=== PATIENT | female | born 1955 | race Caucasian/White ===

== ENCOUNTER 2019-01-21 05:00 | Inpatient (IN) ==
[2019-01-21] MEDS ORDERED: Isovue-370 500 ML BOTTLE IVP ONE (08:35)
[2019-01-21] MEDS ORDERED: Acetaminophen 325 MG TABLET PO PRN (09:38)
[2019-01-21] MEDS ORDERED: Ondansetron 4 MG/2 ML VIAL IVP PRN (09:38)
--- NOTE | 2019-01-21 09:38 | Internal Med History&Physical ---
Date of Encounter: 01/21/19 Time of Encounter: 09:37 Internal Medicine - H&P: HPI Chief complaint: Shortness of breath Admitted From: Emergency Dept History of present illness: Macey Bailon is a 63 F w hx smoker, COPD, DVT, vulvar ca s/p chemorad '17 c/b bladder perforation and hydronephrosis s/p b/l neph tubes, who presented to outside ED with SOB. Symptoms began 1 week ago and have gradually been worsening, and last night began to worsen significantly. Does have cough which has started to become productive as well as wheezing. She also reports subjective fever and chills. Pt's says she has been struggling to breath recently and very tired/weak. Pt denies CP or leg swelling or pain. Pt went to OSH ED 3 days ago for concern about kidney infection and was started on cefdinir, urines cultures are pending. Per ED documentation, EMS found pt hypoxic at 54% on room air, and she recovered to 98% on supplemental O2. Pt endorses history of chronic bronchitis and is a current 1ppd smoker for over 30 years. No recent travel or sick contacts. Patient is essentially homebound. In OSH ED, pt vitals unremarkable except O2 sats low 90s on non-rebreather. ECG shows sinus tach, CXR w bronchitis but no consolidations, BNP 200, Trop 0.23. Pt placed on O2, given dose of rocephin, solumedrol, and duoneb with clinical improvement. Transfer arranged to [place], and accepting physician requested evaluation for DVT/PE which was not done so heparin gtt started empirically prior to transfer. On my interview, patient is sleeping but easily wakes up, resting peaceably on supplemental O2. Denies any complaints other than mild SOB and cough at this time but says she's been very SOB lately, glad to be feeling somewhat improved with treatment at this time. Does also mention some R sided abd pain which she attributes to her kidney infection and says her urine is foul. Denies fevers. Past Med Surg Social Fam HX - Past Medical History Medical history: cancer, COPD, GERD, other Additional medical history: VULVA CANCER Psychiatric history: depression - Past Surgical History Surgical History: cholecystectomy, orthopedic, other, other Additional surgical history: SPINAL FUSION. ORIF. PARTIAL VULVECTOMY. BI- LATERAL NEPHROSTOMY. EXTENSIVE ABDOMINAL SURGERY DUE TO SEPSIS - Social History Smoking Status: Current every day smoker Smokeless Tobacco Status: No Alcohol use: none Drug use: none Internal Medicine - H&P: Meds Citalopram [CeleXA] 40 mg PO DAILY 02/16/17 [History] Docusate [Colace] 200 mg PO DAILY 02/16/17 [History] Gabapentin [Neurontin] 600 mg PO TID 02/16/17 [History] Potassium Chloride [Klor-Con 10] 10 meq PO DAILY 02/16/17 [History] Rivaroxaban [Xarelto] 20 mg PO 1700 02/16/17 [History] Albuterol Neb [AccuNeb] 1.25 mg IH Q6-8H PRN 03/14/17 [History] HYDROmorphone [Dilaudid] 4 mg PO DAILY 03/14/17 [History] OxyCODONE Immed Rel [Roxicodone 10 MG] 7.5 mg PO BID 03/14/17 [History] Pantoprazole Sodium [Protonix] 40 mg PO DAILY 03/14/17 [History] Cefdinir [Omnicef] 300 mg PO BID 10 Days #20 capsule 01/19/19 [Rx] Ferrous Sulfate [Iron] 325 mg PO DAILY 01/19/19 [History] Ibuprofen [Motrin] 400 mg PO Q8HR 01/19/19 [History] Loperamide HCl [Imodium A-D] 2 mg PO 8XD 01/19/19 [History] Megestrol Acetate [Megace Es] 625 mg PO DAILY 01/19/19 [History] Ondansetron ODT [Zofran ODT] 8 mg SL Q6HR 01/19/19 [History] OxyCODONE ER (12 HR) [OxyCONTIN] 20 mg PO Q12HR 01/19/19 [History] Polyethylene Glycol 3350 [MiraLAX] 17 gm PO DAILY 01/19/19 [History] 3 Allergy/AdvReac Type Severity Reaction Status Date / Time acetaminophen [From [facility]] Allergy Rash Verified 01/21/19 03:11 codeine Allergy Rash Verified 01/21/19 03:11 Erythromycin Base Allergy Rash Verified 01/21/19 03:11 hydrocodone [From [facility]] Allergy Rash Verified 01/21/19 03:11 All Systems PM: A 10-system review of systems was performed and is negative for pertinent findings except as documented above in the HPI. - Constitutional Vitals: Temp Pulse Resp BP Pulse Ox 98 F 103 16 93/70 94 01/21/19 08:21 01/21/19 08:21 01/21/19 08:21 01/21/19 08:21 01/21/19 08:21 Exam: General: NAD, good eye contact, emaciated, mild tachypnea Head: Atraumatic, normocephalic. Face symmetric Eyes: EOMI, sclerae anicteric ENT: Mucous membranes moist. Trachea midline. Thoracic: No visible chest wall deformities. Significant diffuse expiratory wheezing with mild coarse inspiratory sounds as well Cardio: Normal S1 and S2, regular rhythm, tachycardic, no murmurs Abdomen: Soft, nontender, nondistended. Bowel sounds present. No rebound Extremities: Warm, well perfused. DP pulses 2+ b/l. No clubbing, cyanosis. No edema Skin: Intact. No rashes, bruises, or ulcers Neuro: Awake, fully oriented. Good memory, concentration, attention. Speech fluent. CN II-XII grossly intact. Strength 5/5 in b/l UE and LE Internal Med - H&P Results - Labs CBC & Chem 7: 01/21/19 10:09 01/21/19 10:09 - Summary of Assessment and Plan Summary of Assessment and Plan: Macey Bailon is a 63 F w hx smoker, COPD, DVT, vulvar ca s/p chemorad '17 c/b bladder perforation and hydronephrosis s/p b/l neph tubes, who p/w SOB, wheezing, tachycardia, and subjective F/C, concerning for viral URI causing COPD exacerbation. COPD in acute exacerbation: unclear etiology, viral and PE are possibilities - nebs q4h&prn - prednisone 40 daily x5d, s/p solumedrol 125 in ED - azithromycin 500 po daily x5d - start LAMA, LABA/ICS on discharge Acute hypoxic respiratory failure: requiring 2L O2 to maintain sats >88% - RVP - CTPE - empiric hep gtt pending CT results, if negative can resume Xarelto - supplemental O2, wean as able - IS - treat cause as above - walk test prior to discharge Demand ischemia: mildly elevated trop in pt w respiratory issues who was significantly hypoxic - tele - trend trops - TTE in context of concern for PE and unclear cause of COPD exacerbation Pyelonephritis: Rocephin 1g daily Underweight: BMI 16, hx cancer, concern for severe malnutrition - nutrition consult DVT: holding xarelto while on hep gtt B/l nephrostomy tubes: noted Vulvar cancer: home chronic opioids, holding megace Depression: decrease celexa from 40 to 20 given qtc risk with zofran and azithro PPx: therapeutic FEN: regular, no MIVF Lines: PIV Consults: Code: Full Dispo: patient requires inpatient eval and management at this time. Anticipate 2-3 days. Will be homegoing
[2019-01-21 10:30] LABS: Hematocrit 44.8 % (35.3-44.9); Immature Granulocytes % 0.3 % (0-4); Lymphocytes # 0.3 K/mcL (0.6-4.6); Lymphocytes % 7.9 %; Mean Corpuscular HGB Conc 31.3 g/dL (31.6-35.5); Mean Corpuscular Hemoglobin 29.4 pg (28.0-33.3); Mean Corpuscular Volume 93.9 fL (83.0-100.0); Mean Platelet Volume 8.1 fL (9.4-12.4); Monocytes # 0.1 K/mcL (0.0-1.3); Monocytes % 2.3 %; Platelet Count 168 K/mcL (140-400); Red Blood Count 4.77 M/mcL (3.82-4.97); Segmented Neutrophils % 89.5 %
[2019-01-21 10:37] LABS: INR 1.7; Prothrombin Time 18.7 Seconds (9.4-12.1)
[2019-01-21 10:49] LABS: BUN/Creatinine Ratio 16 (6-26); Blood Urea Nitrogen 9 mg/dL (8-23); Calcium 8.1 mg/dL (8.6-10.3); Carbon Dioxide 24 mEq/L (23-29); Chloride 107 mEq/L (98-107); Glucose 139 mg/dL (70-105); Osmolality,Calculated 285 (280-300); Potassium 4.1 mEq/L (3.5-5.1); Sodium 137 mEq/L (136-145); eGFR For Non-African Americans > 60 (> 60)
[2019-01-21 10:50] LABS: Magnesium 1.8 mg/dL (1.6-2.6); Phosphorous 2.8 mg/dL (2.7-4.5)
[2019-01-21] MEDS: Azithromycin 250 MG TABLET PO SCH (10:58)
[2019-01-21 11:33] LABS: Troponin I 0.31 ng/mL (< 0.04)
[2019-01-21] MEDS: Ipratropium/Albuterol Neb 3 ML IH SCH ×4 (11:55→23:49)
[2019-01-21 12:20] LABS: Adenovirus Not Detected (Not Detect); Bordetella Pertussis Not Detected (Not Detect); Chlamydophila pneumoniae Not Detected (Not Detect); Coronavirus 229E Not Detected (Not Detect); Coronavirus HKU1 Not Detected (Not Detect); Coronavirus NL63 Not Detected (Not Detect); Coronavirus OC43 Not Detected (Not Detect); Human Metapneumovirus Not Detected (Not Detect); Human Rhinovirus/Enterovirus Not Detected (Not Detect); Influenza A Subtype 2009 H1 Not Detected (Not Detect); Influenza A Untypeable Not Detected (Not Detect); Influenza B Not Detected (Not Detect); Mycoplasma pneumoniae Not Detected (Not Detect); Parainfluenza Virus 1 Not Detected (Not Detect); Parainfluenza Virus 2 Not Detected (Not Detect); Parainfluenza Virus 3 Not Detected (Not Detect); Parainfluenza Virus 4 Not Detected (Not Detect); Respiratory Syncytial Virus Not Detected (Not Detect)
[2019-01-21] MEDS ORDERED: *HR* OxyCODONE Immed Rel 5 MG TABLET PO PRN (12:56)
[2019-01-21] MEDS: Nicotine 21 MG PATCH.TD24 TD SCH (13:05)
[2019-01-21] MEDS: Ibuprofen 400 MG TABLET PO SCH (17:55)
[2019-01-21] MEDS: *HR* Rivaroxaban 10 MG TABLET PO SCH (17:55)
[2019-01-21] MEDS: *HR* OxyCODONE ER (12 HR) 10 MG TABLET PO SCH (17:55)
[2019-01-21] MEDS: Gabapentin 300 MG CAPSULE PO SCH ×2 (17:56→22:14)
[2019-01-22] MEDS: Ibuprofen 400 MG TABLET PO SCH ×3 (00:16→15:40)
[2019-01-22] MEDS: Ipratropium/Albuterol Neb 3 ML IH SCH ×5 (04:40→20:32)
[2019-01-22] MEDS: cefTRIAXone 1,000 MG in 0.9 % Sodium Chloride Mini Bag 100 ML IVPB SCH (04:46)
[2019-01-22] MEDS: *HR* OxyCODONE ER (12 HR) 10 MG TABLET PO SCH ×2 (06:18→17:09)
[2019-01-22 07:51] LABS: Basophils % 0.6 %; Immature Granulocytes % 0.6 % (0-4); Mean Corpuscular Hemoglobin 29.3 pg (28.0-33.3); Red Cell Distribution Width 18.3 % (11.5-14.5)
[2019-01-22 07:52] LABS: Hematocrit 41.9 % (35.3-44.9); Hemoglobin 13.1 g/dL (11.5-15.4); Lymphocytes # 0.3 K/mcL (0.6-4.6); Lymphocytes % 17.9 %; Mean Corpuscular HGB Conc 31.3 g/dL (31.6-35.5); Mean Corpuscular Volume 93.7 fL (83.0-100.0); Mean Platelet Volume 8.6 fL (9.4-12.4); Monocytes # 0.3 K/mcL (0.0-1.3); Monocytes % 15.4 %; Neutrophils # 1.1 K/mcL (1.6-8.9); Platelet Count 151 K/mcL (140-400); Red Blood Count 4.47 M/mcL (3.82-4.97); Segmented Neutrophils % 65.5 %
[2019-01-22 07:55] LABS: Platelet Estimate Normal (Normal); Reactive Lymphocytes Present (Not Present)
[2019-01-22 08:10] LABS: BUN/Creatinine Ratio 20 (6-26); Blood Urea Nitrogen 10 mg/dL (8-23); Calcium 8.2 mg/dL (8.6-10.3); Carbon Dioxide 27 mEq/L (23-29); Chloride 108 mEq/L (98-107); Glucose 125 mg/dL (70-105); Osmolality,Calculated 293 (280-300); Potassium 3.7 mEq/L (3.5-5.1); Sodium 141 mEq/L (136-145); eGFR For Non-African Americans > 60 (> 60)
[2019-01-22] MEDS: Azithromycin 250 MG TABLET PO SCH (08:42)
[2019-01-22] MEDS: Nicotine 21 MG PATCH.TD24 TD SCH (08:42)
[2019-01-22] MEDS: predniSONE 20 MG TABLET PO SCH (08:42)
[2019-01-22] MEDS: Gabapentin 300 MG CAPSULE PO SCH ×3 (08:42→22:04)
[2019-01-22 09:12] LABS: Troponin I 0.05 ng/mL (< 0.04)
--- NOTE | 2019-01-22 11:58 | Internal Med Progress Note ---
Hospitalist Progress Note - Encounter Date of Encounter: 01/22/19 Time of Encounter: 09:50 - Subjective Interval History: Patient complains of chest tenderness. Shortness of breath is improving. She is able to breathe better at this time. At baseline, she is not on oxygen but currently she is requiring 2-3 L/m. No fevers or chills reported overnight. - Exam Vitals: Temp Pulse Resp BP Pulse Ox 97.8 F 81 19 114/82 97 01/22/19 07:33 01/22/19 07:33 01/22/19 11:34 01/22/19 07:33 01/22/19 11:34 Exam: General: Patient is alert, no acute distress, oriented x 3 ENT: Mucous membranes moist Respiratory: Coarse breath sounds bilaterally. no chest wall tenderness Cardiovascular: Regular rate and rhythm. s1 and s2 normal No clicks, rubs, gallops, or murmurs. No pedal edema Abdomen: Abdomen is soft, nontender. Bowel sounds are present Musculoskeletal: Spontaneously moving all extremities Skin: warm, dry, intact. Neuro: Alert oriented x 3 normal cranial nerves, no focal deficits - Assessment and Plan (1) Acute exacerbation of chronic obstructive airways disease Current Visit: Yes Status: Acute Assessment and Plan: Patient with acute exacerbation of COPD. Continue bronchodilators, steroids and O2 supplementation. Brought on due to influenza and pneumonia. (2) Pneumonia Current Visit: Yes Status: Suspected Assessment and Plan: Patient's CT angiogram shows a regular opacities in both lungs mainly in the lower lobes area could be infectious processes. Patient has been started on ceftriaxone and azithromycin. Cultures pending. (3) Influenza A Current Visit: Yes Status: Acute Assessment and Plan: Respiratory infection panel positive for influenza A. Continue Tamiflu (4) Leukopenia Current Visit: Yes Status: Acute Assessment and Plan: Patient has leukopenia with WBC count of 1.6. ANC of 1100. Could be related to pneumonia and acute infection along with influenza. Will monitor blood counts closely. (5) Elevated troponin Current Visit: Yes Status: Acute Assessment and Plan: Troponins have not trended down. Will obtain 2-D echocardiogram. EKG shows she did have chest pain today but describes it more as a tenderness without any relation to activity. EKG shows incomplete RBBB with T-wave inversion in septal leads. This is different compared to her prior EKG. Will obtain repeat EKG. Cardiology consult if echocardiogram abnormal (6) Pyelonephritis, acute Current Visit: Yes Status: Acute Assessment and Plan: Continue current antibiotics. Awaiting urine culture results. Given her history of vulvar cancer and bilateral nephrostomy tubes, expect her urine to be contaminated. However patient did have gram-negative rods and gram-positive cocci in cultures drawn from 01/19. She has grown Proteus cultures from 01/18 were positive for Proteus. This was sensitive to Rocephin and patient has been on Omnicef at home. We will continue Rocephin for now. We will follow culture results and adjust antibiotic regimen accordingly. DVT Prophylaxis: On Xarelto - Time Spent with Patient Total time spent is greater than 50% in coordination of care (as documented) at patient's floor/unit and/or counseling patient: Internal Medicine: Result - Labs CBC & Chem 7: 01/22/19 06:41 01/22/19 06:41 Labs: Short CBC 01/22/19 Range/Units 06:41 WBC 1.6 L D (4.3-11.1) K/mcL Hgb 13.1 (11.5-15.4) g/dL Hct 41.9 (35.3-44.9) % Plt Count 151 (140-400) K/mcL Neutrophils # 1.1 L (1.6-8.9) K/mcL BMP 01/22/19 06:41 Sodium 141 Potassium 3.7 Chloride 108 H Carbon Dioxide 27 BUN 10 Creatinine 0.49 L Glucose 125 H Calcium 8.2 L Cardiac Enzymes 01/22/19 Range/Units 06:41 Troponin I 0.05 H* (< 0.04) ng/mL - ABG Interpretation ABG results: PT/INR, D-dimer PT 18.7 Seconds (9.4-12.1) H 01/21/19 10:09 Consult Discharge Plan - Plan Referrals: Nikki Crowley, RN [facility] [Primary Care Provider] - (2) Pneumonia Qualifiers: Pneumonia type: due to Pneumococcus Laterality: bilateral Lung location: lower lobe of lung Qualified Code(s): J13 - Pneumonia due to Streptococcus pneumoniae (4) Leukopenia Qualifiers: Leukopenia type: neutropenia Neutropenia type: due to infection Qualified Code(s): D70.3 - Neutropenia due to infection
[2019-01-22] MEDS: *HR* Rivaroxaban 10 MG TABLET PO SCH (15:39)
[2019-01-22] MEDS: Budesonide/Formoterol 80/4.5 MDI IH SCH ×2 (15:48→20:32)
[2019-01-22] MEDS: Ondansetron ODT 4 MG TAB.RAPDIS SL SCH (17:09)
[2019-01-22] MEDS ORDERED: *HR* OxyCODONE ER (12 HR) 10 MG TABLET PO SCH (18:00)
[2019-01-22] MEDS ORDERED: OXYCODONE HCL 7.5 MG PO SCH (21:00)
[2019-01-23] MEDS: Ipratropium/Albuterol Neb 3 ML IH SCH ×7 (00:36→23:43)
[2019-01-23] MEDS: Ibuprofen 400 MG TABLET PO SCH ×3 (00:58→15:23)
[2019-01-23] MEDS: Ondansetron ODT 4 MG TAB.RAPDIS SL SCH ×4 (00:59→17:18)
[2019-01-23] MEDS: cefTRIAXone 1,000 MG in 0.9 % Sodium Chloride Mini Bag 100 ML IVPB SCH (05:22)
[2019-01-23] MEDS: *HR* OxyCODONE ER (12 HR) 10 MG TABLET PO SCH ×2 (05:25→17:18)
[2019-01-23 05:43] LABS: Hematocrit 42.4 % (35.3-44.9); Immature Granulocytes % 0.7 % (0-4); Lymphocytes % 25.5 %; Mean Corpuscular HGB Conc 30.7 g/dL (31.6-35.5); Mean Corpuscular Volume 94.4 fL (83.0-100.0); Mean Platelet Volume 8.6 fL (9.4-12.4); Platelet Count 147 K/mcL (140-400); Red Blood Count 4.49 M/mcL (3.82-4.97); Red Cell Distribution Width 18.1 % (11.5-14.5); Segmented Neutrophils % 57.9 %
[2019-01-23 05:44] LABS: Basophils % 0.4 %; Lymphocytes # 0.7 K/mcL (0.6-4.6); Monocytes # 0.4 K/mcL (0.0-1.3); Monocytes % 15.5 %; Neutrophils # 1.6 K/mcL (1.6-8.9)
[2019-01-23 06:01] LABS: BUN/Creatinine Ratio 27 (6-26); Blood Urea Nitrogen 13 mg/dL (8-23); Calcium 8.3 mg/dL (8.6-10.3); Carbon Dioxide 29 mEq/L (23-29); Chloride 109 mEq/L (98-107); Glucose 100 mg/dL (70-105); Osmolality,Calculated 298 (280-300); Potassium 3.6 mEq/L (3.5-5.1); Sodium 144 mEq/L (136-145); eGFR For Non-African Americans > 60 (> 60)
[2019-01-23 06:14] LABS: Platelet Estimate Normal (Normal); Reactive Lymphocytes Present (Not Present)
[2019-01-23] MEDS: Budesonide/Formoterol 80/4.5 MDI IH SCH ×2 (07:13→19:45)
[2019-01-23] MEDS: Nicotine 21 MG PATCH.TD24 TD SCH (09:53)
[2019-01-23] MEDS: Gabapentin 300 MG CAPSULE PO SCH ×3 (09:53→21:14)
[2019-01-23] MEDS: predniSONE 20 MG TABLET PO SCH (09:54)
[2019-01-23] MEDS: Azithromycin 250 MG TABLET PO SCH (09:54)
[2019-01-23] MEDS: *HR* HYDROmorphone 4 MG TABLET PO SCH (09:54)
--- NOTE | 2019-01-23 11:34 | Internal Med Progress Note ---
Hospitalist Progress Note - Encounter Date of Encounter: 01/23/19 Time of Encounter: 09:45 - Subjective Interval History: Patient lying down in bed. Complains of cough and shortness of breath. Remains on supplemental oxygen. Does not have chest pain at this time. She does not feel good enough to go home. Mild sputum production. - Exam Vitals: Temp Pulse Resp BP Pulse Ox 97.9 F 73 17 111/72 92 01/23/19 07:16 01/23/19 07:16 01/23/19 11:02 01/23/19 07:16 01/23/19 11:02 Exam: General: Patient is alert, no acute distress, oriented x 3 ENT: Mucous membranes moist Respiratory: Bilateral wheezing and rhonchi Cardiovascular: Regular rate and rhythm. s1 and s2 normal No clicks, rubs, gallops, or murmurs. Mild bilateral pedal edema Abdomen: Abdomen is soft, nontender. Bilateral nephrostomy tubes in place. Bowel sounds are present Musculoskeletal: Spontaneously moving all extremities Skin: warm, dry, intact. - Assessment and Plan (1) Acute exacerbation of chronic obstructive airways disease Current Visit: Yes Status: Acute Assessment and Plan: continue bronchodilators, steroids and O2 supplementation. Wean FiO2 as tolerated. (2) Pneumonia Current Visit: Yes Status: Suspected Assessment and Plan: Blood cultures are negative. Continue current antibiotics. (3) Influenza A Current Visit: Yes Status: Acute Assessment and Plan: Continue Tamiflu. Complete 5 day course (4) Leukopenia Current Visit: Yes Status: Acute Assessment and Plan: WBC count 2.8 today. Improving. We will continue to monitor (5) Elevated troponin Current Visit: Yes Status: Acute Assessment and Plan: Troponins trended down. Echocardiogram shows EF of 60%. No wall motion abno rmalities. No further workup needed at this time (6) Pyelonephritis, acute Current Visit: Yes Status: Acute Assessment and Plan: Urine cultures now growing gram-negative rods and gram-positive cocci. Cultures from 01/19 grew Providencia and another GNR along with Staphylococcus which appears to be contaminant. Given the multiple organisms, we will consult infectious disease to help guide treatment. Will continue ceftriaxone and azithromycin. DVT Prophylaxis: On Xarelto - Time Spent with Patient Total time spent is greater than 50% in coordination of care (as documented) at patient's floor/unit and/or counseling patient: Internal Medicine: Result - Labs CBC & Chem 7: 01/23/19 05:22 01/23/19 05:22 Labs: Short CBC 01/23/19 Range/Units 05:22 WBC 2.8 L D (4.3-11.1) K/mcL Hgb 13.0 (11.5-15.4) g/dL Hct 42.4 (35.3-44.9) % Plt Count 147 (140-400) K/mcL Neutrophils # 1.6 (1.6-8.9) K/mcL BMP 01/23/19 05:22 Sodium 144 Potassium 3.6 Chloride 109 H Carbon Dioxide 29 BUN 13 Creatinine 0.49 L Glucose 100 Calcium 8.3 L - ABG Interpretation ABG results: PT/INR, D-dimer PT 18.7 Seconds (9.4-12.1) H 01/21/19 10:09 - Impressions Impressions Echocardiogram 01/22/19 11:55 Impressions: LVEF 60%. Normal LV chamber size, wall thickness and function. Normal left ventricular diastolic function. Grossly, right ventricular structure appears normal. RV function was not well assessed. No significant valvular dysfunction Unable to estimate RVSP due to lack of TR jet. Left Ventricular Wall Motion: Rest Echo Findings All wall segments showed normal motion. Findings: Study Quality * Technically adequate exam. ECG Findings * Normal sinus rhythm. Left Ventricle * LVEF 60%. * Normal LV chamber size, wall thickness and function. * Normal left ventricular diastolic function. Right Ventricle * Grossly, right ventricular structure appears normal. RV function was not well assessed. Left Atrium * Normal left atrial size. Right Atrium * Normal right atrial size. Interatrial Septum * No evidence of PFO by color Doppler. Aortic Valve * Trileaflet aortic valve. * Normal aortic valve structure. * No aortic regurgitation. * No aortic stenosis. Mitral Valve * Normal mitral valve structure. * No mitral regurgitation. * No mitral stenosis. Tricuspid Valve * Normal tricuspid valve structure. * Trace tricuspid regurgitation. * No tricuspid stenosis. * Unable to estimate RVSP due to lack of TR jet. Pulmonic Valve * No pulmonic regurgitation. Aorta * Normally sized aortic root. Pericardium * The pericardium appears normal. IVC * The IVC is dilated. Pulmonary Artery * Normal visualized portions of the main pulmonary artery. Consult Discharge Plan - Plan Referrals: Nikki Crowley, [employer] [Primary Care Provider] - (2) Pneumonia Qualifiers: Pneumonia type: due to Pneumococcus Laterality: bilateral Lung location: lower lobe of lung Qualified Code(s): J13 - Pneumonia due to Streptococcus pneumoniae (4) Leukopenia Qualifiers: Leukopenia type: neutropenia Neutropenia type: due to infection Qualified Code(s): D70.3 - Neutropenia due to infection
--- NOTE | 2019-01-23 12:35 | Infectious Disease Consult ---
Date of Encounter: 01/23/19 Time of Encounter: 12:33 Assessment and Plan (1) Sepsis Status: Acute Assessment and plan: Patient had 2 sepsis criteria on admission. Likely secondary to pneumonia and influenza. Improved. Tachycardia and tachypnea have resolved. She is now leukopenic. Blood cultures drawn 01/21/19 are no growth to date. Recommend: Continue droplet precautions policy. Continue to trend CBC. Await blood cultures to finalize. The patient has no urinary symptoms and her urine cultures appear grossly contaminated as it seems that they were obtained from the nephrostomy tube bags. At this point, would not recommend any additional antibiotics for the positive urine cultures. Continue Tamiflu 75 mg by mouth twice a day. Discontinue Zithromax. Discontinue Rocephin. Continue supportive care per the primary team. Duration of treatment depends on the clinical picture, but likely a total of 5 days of Tamiflu should be adequate. Monitor renal function and dose adjust medications. Qualifiers: Sepsis type: sepsis due to unspecified organism Qualified Code(s): A41.9 - Sepsis, unspecified organism (2) Pneumonia Status: Suspected Assessment and plan: Also organism: Likely influenza. Chest x-ray showed findings consistent with bronchitis. CTA of the chest showed an atypical infectious process with underlying chronic lung disease. Respiratory infectious panel positive for influenza A. Currently on Tamiflu, Rocephin, and Zithromax. Qualifiers: Pneumonia type: due to Pneumococcus Laterality: bilateral Lung location: lower lobe of lung Qualified Code(s): J13 - Pneumonia due to Streptococcus pneumoniae (3) UTI (urinary tract infection) Status: Acute Assessment and plan: Asymptomatic bacteriuria. Urine cultures are positive for multiple organisms, indicating gross contamination as the patient states that the urine specimens were obtained from the nephrostomy bags. The patient has no evidence of urinary tract infection including abdominal pain or flank tenderness. I believe that her sepsis was likely related to her flu. Currently on IV Rocephin. Qualifiers: Urinary tract infection type: catheter-associated UTI Indwelling urinary catheter type: nephrostomy catheter Encounter type: subsequent encounter Qualified Code(s): T83.512D - Infection and inflammatory reaction due to nephrostomy catheter, subsequent encounter; N39.0 - Urinary tract infection, site not specified (4) Influenza A Status: Acute (5) Elevated troponin Status: Acute Assessment and plan: Likely demand ischemia from sepsis. Further workup and treatment per the primary team. Infectious Disease HPI - Data of Consult Patient: new to practice Consult date: 01/23/19 Requesting Physician: Nubia Diaz MD Primary Care Provider: Nikki Crowley CNP - Consult Narrative Reason for consult: UTI History of present illness: Ms. Bailon is a 63 year old female with a past medical history of vulvar cancer diagnosed in 2017 status post chemotherapy and radiation complicated by bladder perforation and hydronephrosis status post bilateral nephrostomy tube placement, GERD, and depression. The patient was admitted to the hospital 01/21/19 for acute exacerbation of COPD, elevated troponin, and UTI. We are consulted 01/23 for further workup and treatment recommendations for ELANA. Briefly, the patient is a 63-year-old female with past medical history as stated above. She presented to the emergency department originally back on 01/19/19. She was diagnosed with pyelonephritis and discharged home with a 10 day course of oral Omnicef. She presented back to the emergency department on the day of admission with complaints of acute shortness of breath. Upon arrival, she was afebrile. She was tachycardic and tachypneic. She had a normal white blood cell count. Renal function and lactic acid were normal. Troponin was mildly elevated. Urinalysis from bilateral nephrostomy tubes appeared pyuria, but also possibly contaminated. Blood cultures were obtained 2 sets are no growth. Respiratory infectious panel was positive for influenza A. Chest x-ray showed findings consistent with bronchitis. She was started empirically on IV Rocephin and transferred here for further evaluation. Since admission, the patient has become leukopenic with a white blood cell count of 2.8 today. Her ANC is 1400. Urine cultures obtained from bilateral nephrostomy tubes are growing out multiple organisms. She had a CTA of the chest that showed findings consistent with an atypical infectious process overlying chronic lung disease. Currently, the patient is on Zithromax, Tamiflu, and IV Rocephin. We have been asked to evaluate and make further recommendations. During the exam today, the patient states that for the past week prior to admission, she has felt generally poor with fatigue and weakness and sinus congestion and a sore throat. She reports a coughing fit that led to shortness of breath that led her to go to the emergency department. She reports some intermittent headaches, but denies any neck pain or stiffness. She reports some chills and subjective fevers. He denies chest or abdominal pain. She does report some muscle soreness to the lower part of her abdomen that is worse with cough or certain movements. She denies any flank pain or changes in her urine. She denies any oral thrush or new skin lesions. She states her appetite has been good. She reports some intermittent nausea, but denies any vomiting or diarrhea. Lives at home with her . She smokes a pack a day. She denies alcohol or illicit drug use. She tells me she is due to have her nephrostomy tube switched out on February 04. She does have a dog at home, but denies any bites or scratches. She denies any chronic infectious diseases. She denies any recent travel outside the [facility]. She does tells me that her has not been feeling well and has been sick. CC: Nubia Diaz MD Past Med Surg Social Fam HX - Past Medical History Attestation: Yes The following information was validated with the patient. Source: patient, old records reviewed, nursing notes reviewed Medical history: cancer, COPD, GERD, other Additional medical history: VULVA CANCER Psychiatric history: depression - Past Surgical History Surgical History: cholecystectomy, orthopedic, other, other Additional surgical history: SPINAL FUSION. ORIF. PARTIAL VULVECTOMY. BI- LATERAL NEPHROSTOMY. EXTENSIVE ABDOMINAL SURGERY DUE TO SEPSIS - Social History Smoking Status: Current every day smoker Packs per day: 1 Smokeless Tobacco Status: No Alcohol use: none Drug use: none Occupational status: retired Current living situation: Home - Independent Activity Level: Independent ambulation Recent Out of Country Travel Within the Last 8 Weeks: No Exposure or Possible Exposure to Illness During Travel: No - Family History Mother Living Status: Age at : 84 Cause of : kidney failure Hx Family Cardiac Disorders: Yes Hx Family Respiratory Disorders: Yes Hx Family Genitourinary Disorders: Yes Hx Family Medical Disorders: Yes Infectious Disease-CN:Meds Citalopram [CeleXA] 40 mg PO DAILY 02/16/17 [History] Gabapentin [Neurontin] 600 mg PO TID 02/16/17 [History] RX: Docusate [Colace] 200 mg PO DAILY 02/16/17 [History] Rivaroxaban [Xarelto] 20 mg PO 1700 02/16/17 [History] HYDROmorphone [Dilaudid] 4 mg PO DAILY 03/14/17 [History] RX: OxyCODONE Immed Rel [Roxicodone 10 MG] 7.5 mg PO BID 03/14/17 [History] Ferrous Sulfate [Iron] 325 mg PO DAILY 01/19/19 [History] Loperamide HCl [Imodium A-D] 2 mg PO 8XD 01/19/19 [History] Ondansetron ODT [Zofran ODT] 8 mg SL Q6HR 01/19/19 [History] OxyCODONE ER (12 HR) [OxyCONTIN] 20 mg PO Q12HR 01/19/19 [History] Megestrol Acetate [Megace] 40 mg PO BID 01/22/19 [History] Allergy/AdvReac Type Severity Reaction Status Date / Time acetaminophen [From [place]] Allergy Rash Verified 01/22/19 13:47 codeine Allergy Rash Verified 01/22/19 13:47 Erythromycin Base Allergy Rash Verified 01/22/19 13:47 hydrocodone [From [place]] Allergy Rash Verified 01/22/19 13:47 All systems: reviewed and no additional remarkable complaints except as stated Exam - Constitutional Vitals: Temp Pulse Resp BP Pulse Ox 97.9 F 84 16 106/69 93 01/23/19 07:16 01/23/19 12:06 01/23/19 12:06 01/23/19 12:06 01/23/19 12:06 General appearance: average body habitus, cooperative, no acute distress - Head Head exam: Present: atraumatic, normal inspection, normocephalic - Eye Eye exam: Present: EOMI, normal appearance, PERRL Pupils: Present: normal accommodation - ENT ENT exam: Present: mucous membranes moist - Neck Neck exam: Present: normal inspection - Respiratory Respiratory exam: Present: CTAB. Absent: rales, respiratory distress, rhonchi, wheezes - Cardiovascular Cardiovascular exam: Present: RRR, +S1, +S2 - GI/Abdominal GI/Abdominal exam: Present: normal bowel sounds, soft. Absent: distended, tenderness - Extremities Exam Extremities exam: Present: normal inspection. Absent: joint swelling, pedal edema, tenderness - Back Exam Back exam: Absent: CVA tenderness (L), CVA tenderness (R) Additional comments: Bilateral nephrostomy tubes with clear yellow urine noted. - Neurological Exam Neurological exam: Present: alert, oriented X3, no focal deficits - Psychiatric Psychiatric exam: Present: normal affect, normal mood - Skin Skin exam: Present: dry, intact, normal color, warm Infectious Disease CN: Results - Labs CBC & Chem 7: 01/23/19 05:22 01/23/19 05:22 Serology: Serology 01/21/19 Range/Units 11:02 Chlamy pneumoniae PCR Not Detected (Not Detect) Adenovirus (PCR) Not Detected (Not Detect) B. pertussis DNA (PCR) Not Detected (Not Detect) B.parapertussis DNA PCR Not Detected (Not Detect) Coronavirus OC43 (PCR) Not Detected (Not Detect) Coronavirus HKU1 (PCR) Not Detected (Not Detect) Coronavirus 229E (PCR) Not Detected (Not Detect) Coronavirus NL63 (PCR) Not Detected (Not Detect) Human Metapneumovir PCR Not Detected (Not Detect) Influenza A (H1) PCR Not Detected (Not Detect) Influ A (H1N1/09) PCR Not Detected (Not Detect) Influenza A (H3) PCR DETECTED A (Not Detect) Influenza A Untype (PCR) Not Detected (Not Detect) Influenza Type B (PCR) Not Detected (Not Detect) M.pneumoniae DNA (PCR) Not Detected (Not Detect) Parainfluenza 1 (PCR) Not Detected (Not Detect) Parainfluenza 2 (PCR) Not Detected (Not Detect) Parainfluenza 3 (PCR) Not Detected (Not Detect) Parainfluenza 4 (PCR) Not Detected (Not Detect) RSV (PCR) Not Detected (Not Detect) Entero/Rhino (PCR) Not Detected (Not Detect) Consult Discharge Plan - Plan Referrals: Nikki Crowley, GRAPPLE OPERATOR [Primary Care Provider] - - Attending Attestation I have personally performed a face to face evaluation on this patient. I have reviewed and agree with the care plan. History and Exam by me shows: Patient is a 63-year-old woman Had history of cancer requiring bilateral nephrostomy came in with fever picture. Patient at the outside facility apparently had cultures from nephrostomy tubes and it grew multiple gram- negative rods with final ID pending. Patient was also found to have the flu. Currently patient appears comfortable. She thinks she got the flu from her . Assessment and plan: 1.Sepsis 2.Pneumonia 3.Influenza a 4.Urinary tract infection 5.History of cancer Recommendations Continue droplet precautions policy. Continue to trend CBC. Await blood cultures to finalize. The patient has no urinary symptoms and her urine cultures appear grossly contaminated as it seems that they were obtained from the nephrostomy tube bags. At this point, would not recommend any additional antibiotics for the positive urine cultures. Continue Tamiflu 75 mg by mouth twice a day. Discontinue Zithromax. Discontinue Rocephin. Continue supportive care per the primary team. Duration of treatment depends on the clinical picture, but likely a total of 5 days of Tamiflu should be adequate. Monitor renal function and dose adjust medications.
[2019-01-23] MEDS: *HR* Rivaroxaban 10 MG TABLET PO SCH (17:18)
[2019-01-24] MEDS: Ibuprofen 400 MG TABLET PO SCH ×3 (00:47→15:55)
[2019-01-24] MEDS: Ondansetron ODT 4 MG TAB.RAPDIS SL SCH ×4 (00:47→17:17)
[2019-01-24] MEDS: Ipratropium/Albuterol Neb 3 ML IH SCH ×6 (03:56→23:34)
[2019-01-24] MEDS: cefTRIAXone 1,000 MG in 0.9 % Sodium Chloride Mini Bag 100 ML IVPB SCH (04:37)
[2019-01-24] MEDS: *HR* OxyCODONE ER (12 HR) 10 MG TABLET PO SCH ×2 (06:04→17:16)
[2019-01-24 06:55] LABS: Basophils % 0.3 %; Hemoglobin 13.3 g/dL (11.5-15.4); Immature Granulocytes % 0.3 % (0-4); Lymphocytes # 0.7 K/mcL (0.6-4.6); Lymphocytes % 20.2 %; Mean Corpuscular HGB Conc 30.9 g/dL (31.6-35.5); Mean Corpuscular Hemoglobin 29.1 pg (28.0-33.3); Mean Corpuscular Volume 94.1 fL (83.0-100.0); Mean Platelet Volume 8.6 fL (9.4-12.4); Monocytes # 0.4 K/mcL (0.0-1.3); Monocytes % 12.4 %; Neutrophils # 2.2 K/mcL (1.6-8.9); Platelet Count 144 K/mcL (140-400); Red Blood Count 4.57 M/mcL (3.82-4.97); Red Cell Distribution Width 18.5 % (11.5-14.5); Segmented Neutrophils % 66.8 %
[2019-01-24 07:15] LABS: Platelet Estimate Normal (Normal); Reactive Lymphocytes Present (Not Present)
[2019-01-24] MEDS: Budesonide/Formoterol 80/4.5 MDI IH SCH ×2 (07:39→19:47)
[2019-01-24] MEDS: Gabapentin 300 MG CAPSULE PO SCH ×3 (10:24→20:08)
[2019-01-24] MEDS: *HR* HYDROmorphone 4 MG TABLET PO SCH (10:26)
[2019-01-24] MEDS: predniSONE 20 MG TABLET PO SCH (10:27)
[2019-01-24] MEDS: Nicotine 21 MG PATCH.TD24 TD SCH (10:27)
--- NOTE | 2019-01-24 11:14 | Infectious Disease Progress No ---
Date of Encounter: 01/24/19 Time of Encounter: 09:40 - Assessment and Plan (1) Sepsis Current Visit: Yes Status: Acute Patient had 2 sepsis criteria on admission. Likely secondary to pneumonia and influenza. Improved. Tachycardia and tachypnea have resolved. WBC improved. Blood cultures drawn 01/21/19 are no growth to date. Recommend: Continue droplet precautions policy. Continue to trend CBC. Await blood cultures to finalize. The patient has no urinary symptoms and her urine cultures appear grossly contaminated as it seems that they were obtained from the nephrostomy tube bags. At this point, would not recommend any additional antibiotics for the positive urine cultures. Continue Tamiflu 75 mg by mouth twice a day. (day 4) Continue supportive care per the primary team. Duration of treatment depends on the clinical picture, but likely a total of 5 days of Tamiflu should be adequate. Monitor renal function and dose adjust medications. No further recommendations from the ID team. Will sign off. Please re-consult if needed. Qualifiers: Sepsis type: sepsis due to unspecified organism Qualified Code(s): A41.9 - Sepsis, unspecified organism (2) Pneumonia Current Visit: Yes Status: Acute Causative organism: Likely influenza. Chest x-ray showed findings consistent with bronchitis. CTA of the chest showed an atypical infectious process with underlying chronic lung disease. Respiratory infectious panel positive for influenza A. Currently on Tamiflu. Qualifiers: Pneumonia type: due to influenza A virus Laterality: bilateral Lung location: lower lobe of lung Qualified Code(s): J11.00 - Influenza due to unidentified influenza virus with unspecified type of pneumonia (3) UTI (urinary tract infection) Current Visit: No Status: Acute Asymptomatic bacteriuria. Urine cultures are positive for multiple organisms, indicating gross contamination as the patient states that the urine specimens were obtained from the nephrostomy bags. The patient has no evidence of urinary tract infection including abdominal pain or flank tenderness. I believe that her sepsis was likely related to her flu. No additional antibiotics required. Qualifiers: Urinary tract infection type: catheter-associated UTI Indwelling urinary catheter type: nephrostomy catheter Encounter type: subsequent encounter Qualified Code(s): T83.512D - Infection and inflammatory reaction due to nephrostomy catheter, subsequent encounter; N39.0 - Urinary tract infection, site not specified (4) Influenza A Current Visit: Yes Status: Acute Continue droplet precautions. (5) Elevated troponin Current Visit: Yes Status: Acute Likely demand ischemia from sepsis. Further workup and treatment per the primary team. - Subjective Interval history: Patient seen and examined. No acute events noted overnight. Patient states overall she feels better today. Continues to complain of some sinus congestion. Denies chest pain, shortness of breath, or cough. Denies fevers, chills, rigors. Denies abdominal pain, urinary complaints, or flank pain. Denies any oral thrush or any skin lesions. Infect Dis PN-Objective Data - Labs CBC & Chem 7: 01/25/19 08:39 01/23/19 05:22 Labs: Laboratory Results - last 24 hr 01/24/19 06:17 WBC 3.3 L RBC 4.57 Hgb 13.3 Hct 43.0 MCV 94.1 MCH 29.1 MCHC 30.9 L RDW 18.5 H Plt Count 144 MPV 8.6 L Immature Gran % 0.3 Seg Neutrophils % 66.8 Lymphocytes % 20.2 Monocytes % 12.4 Eosinophils % 0.0 Basophils % 0.3 Neutrophils # 2.2 Lymphocytes # 0.7 Monocytes # 0.4 Eosinophils # 0.0 Basophils # 0.0 Reactive Lymphocytes Present A Platelet Estimate Normal Cultures: Serology 01/21/19 Range/Units 11:02 Chlamy pneumoniae PCR Not Detected (Not Detect) Adenovirus (PCR) Not Detected (Not Detect) B. pertussis DNA (PCR) Not Detected (Not Detect) B.parapertussis DNA PCR Not Detected (Not Detect) Coronavirus OC43 (PCR) Not Detected (Not Detect) Coronavirus HKU1 (PCR) Not Detected (Not Detect) Coronavirus 229E (PCR) Not Detected (Not Detect) Coronavirus NL63 (PCR) Not Detected (Not Detect) Human Metapneumovir PCR Not Detected (Not Detect) Influenza A (H1) PCR Not Detected (Not Detect) Influ A (H1N1/09) PCR Not Detected (Not Detect) Influenza A (H3) PCR DETECTED A (Not Detect) Influenza A Untype (PCR) Not Detected (Not Detect) Influenza Type B (PCR) Not Detected (Not Detect) M.pneumoniae DNA (PCR) Not Detected (Not Detect) Parainfluenza 1 (PCR) Not Detected (Not Detect) Parainfluenza 2 (PCR) Not Detected (Not Detect) Parainfluenza 3 (PCR) Not Detected (Not Detect) Parainfluenza 4 (PCR) Not Detected (Not Detect) RSV (PCR) Not Detected (Not Detect) Entero/Rhino (PCR) Not Detected (Not Detect) Exam - Constitutional Vitals: Temp Pulse Resp BP Pulse Ox 97.6 F 75 16 122/81 96 01/24/19 07:20 01/24/19 07:20 01/24/19 07:38 01/24/19 07:20 01/24/19 07:38 General appearance: average body habitus, cooperative, no acute distress - Head Head exam: Present: atraumatic, normal inspection, normocephalic - Eye Eye exam: Present: EOMI, normal appearance, PERRL Pupils: Present: normal accommodation - ENT ENT exam: Present: mucous membranes moist - Neck Neck exam: Present: normal inspection - Respiratory Respiratory exam: Present: CTAB. Absent: rales, respiratory distress, rhonchi, wheezes - Cardiovascular Cardiovascular exam: Present: RRR, +S1, +S2 - GI/Abdominal GI/Abdominal exam: Present: normal bowel sounds, soft. Absent: distended, tenderness - Extremities Exam Extremities exam: Present: normal inspection. Absent: joint swelling, pedal edema, tenderness - Back Exam Additional comments: Bilateral nephrostomy tubes noted with clear yellow urine. - Neurological Exam Neurological exam: Present: alert, oriented X3, no focal deficits - Psychiatric Psychiatric exam: Present: normal affect, normal mood - Skin Skin exam: Present: dry, intact, normal color, warm Consult Discharge Plan - Plan Referrals: Nikki Crowley, BOILER ROOM OPERATOR [Primary Care Provider] - - Attending Attestation I have personally performed a face to face evaluation on this patient. I have reviewed and agree with the care plan. History and Exam by me shows: Patient seen and examined. Appears comfortable. No acute distress. No chest pain no shortness of breath no nausea no vomiting no diarrhea no CVA tenderness. Clinically doing well. Assessment and plan: Sepsis Flu Asymptomatic bacteriuria with with bilateral urostomy tubes Recommendations Continue Tamiflu We will not treat the bacteria in the urine culture think it is a contaminant or colonizer Patient is asymptomatic and her sepsis picture has improved Continue to monitor closely We will sign off, please call us if anything changes clinically
--- NOTE | 2019-01-24 11:57 | Internal Med Progress Note ---
Hospitalist Progress Note - Encounter Date of Encounter: 01/24/19 Time of Encounter: 09:30 - Subjective Interval History: Patient doing better today. Still feels weak and tired. Breathing improved. No fever reported overnight. No nausea or vomiting. - Exam Vitals: Temp Pulse Resp BP Pulse Ox 97.6 F 75 16 122/81 96 01/24/19 07:20 01/24/19 07:20 01/24/19 07:38 01/24/19 07:20 01/24/19 07:38 Exam: General: Patient is alert, no acute distress, oriented x 3 ENT: Mucous membranes moist Respiratory: Mild wheezing. Prolonged expiratory phase Cardiovascular: Regular rate and rhythm. s1 and s2 normal No clicks, rubs, gallops, or murmurs. Mild pedal edema Abdomen: Abdomen is soft, nontender. Bilateral nephrostomy tubes in place. Bowel sounds are present Musculoskeletal: Spontaneously moving all extremities Skin: warm, dry, intact. Neuro: Alert oriented x 3 normal cranial nerves, no focal deficits - Assessment and Plan (1) Acute exacerbation of chronic obstructive airways disease Current Visit: Yes Status: Acute Assessment and Plan: Continue bronchodilators. Continue to taper steroids. O2 supplementation as needed to keep sats greater than 90% (2) Pneumonia Current Visit: Yes Status: Acute Assessment and Plan: Discussed with infectious disease. We will stop antibiotics. Pneumonia likely due to influenza. (3) Influenza A Current Visit: Yes Status: Acute Assessment and Plan: Complete Tamiflu course. Clinically patient is doing much better today. (4) Leukopenia Current Visit: Yes Status: Acute Assessment and Plan: Improving. WBC 3.3 today. (5) Elevated troponin Current Visit: Yes Status: Acute Assessment and Plan: Likely due to demand ischemia. (6) Pyelonephritis, acute Current Visit: Yes Status: Ruled-out Assessment and Plan: Discussed with infectious disease. Urine cultures growing multiple bacteria which are most likely contaminant. No further antibiotics indicated per infectious disease. We will stop antibiotics. (7) Generalized weakness Current Visit: Yes Status: Acute Assessment and Plan: Patient with generalized weakness. We will consult physical therapy for evaluation. Patient may need placement to skilled rehabilitation. - Time Spent with Patient Total time spent is greater than 50% in coordination of care (as documented) at patient's floor/unit and/or counseling patient: Internal Medicine: Result - Labs CBC & Chem 7: 01/24/19 06:17 01/23/19 05:22 Labs: Short CBC 01/24/19 Range/Units 06:17 WBC 3.3 L (4.3-11.1) K/mcL Hgb 13.3 (11.5-15.4) g/dL Hct 43.0 (35.3-44.9) % Plt Count 144 (140-400) K/mcL Neutrophils # 2.2 (1.6-8.9) K/mcL - ABG Interpretation ABG results: PT/INR, D-dimer PT 18.7 Seconds (9.4-12.1) H 01/21/19 10:09 Consult Discharge Plan - Plan Referrals: Nikki Crowley, CORE DIPPER [Primary Care Provider] - (2) Pneumonia Qualifiers: Pneumonia type: due to influenza A virus Laterality: bilateral Lung location: lower lobe of lung Qualified Code(s): J11.00 - Influenza due to unidentified influenza virus with unspecified type of pneumonia (4) Leukopenia Qualifiers: Leukopenia type: neutropenia Neutropenia type: due to infection Qualified Code(s): D70.3 - Neutropenia due to infection
[2019-01-24] MEDS: *HR* Rivaroxaban 10 MG TABLET PO SCH (15:55)
[2019-01-25] MEDS: Ibuprofen 400 MG TABLET PO SCH ×4 (00:03→23:23)
[2019-01-25] MEDS: Ondansetron ODT 4 MG TAB.RAPDIS SL SCH ×5 (00:03→23:23)
[2019-01-25] MEDS ORDERED: Isovue-370 500 ML BOTTLE IVP ONE (01:28)
[2019-01-25] MEDS ORDERED: 0.9 % Sodium Chloride 500 ML IVC ONE ×2 (01:46→01:57)
[2019-01-25] MEDS ORDERED: 0.9 % Sodium Chloride 500 ML ONE (01:49)
[2019-01-25 01:52] LABS: Hematocrit 38.7 % (35.3-44.9); Hemoglobin 11.9 g/dL (11.5-15.4)
[2019-01-25 01:59] LABS: INR 1.5; Prothrombin Time 17.1 Seconds (9.4-12.1)
[2019-01-25 02:02] LABS: Activated Partial Thrombo Time 33.3 Seconds (26.0-36.0)
[2019-01-25] MEDS ORDERED: 0.9 % Sodium Chloride 1,000 ML IVC ONE (03:38)
--- NOTE | 2019-01-25 04:04 | Event Note ---
Addendum entered and electronically signed by Casie Tsang MD 01/25/19 07:18: Xarelto has been held at this time. Original Note: Date of Encounter: 01/25/19 Time of Encounter: 04:04 I was called to bedside by nursing staff. Patient had large amount of vaginal bleeding on the bed. Coagulation studies, hemoglobin and hematocrit were ordered, type and screen, fluid resuscitation started. Patient has a history of multiple abdominal surgeries as well as vulvar cancer, status post vulvectomy [address] abdomen pelvis with contrast was ordered for evaluation of intra- abdominal bleeding. Review of chart showed her to be supratherapeutic on xarelto on admission at 1.61. Hemoglobin and hematocrit returned, hemoglobin had decreased from 13.3 to 11.9. Heparin anti Xa elevated at 1.63. Patient was hypotensive and tachycardic, fluid resuscitation continued with a second liter o f normal saline. Patient consented to blood transfusion due to continued bleeding and hypotension. Abdomen and pelvic CT revealed a large bladder calculus and diverticulosis without diverticulitis, no fluid collections or bleeding into abdomen or pelvis noted. Repeat hemoglobin at 9.2. Vitals improved, patient currently on maintenance fluids and transfusion continues. LIFE SCIENCE TECHNICIAN was consulted for recommendations. Physical exam was performed General- vital signs noted. Patient in no acute distress, resting comfortably in bed with bleeding per vagina on bed Cardio-regular rate and rhythm, no murmurs rubs or gallops, radial and dorsal pedis pulses 3+ and symmetrical Pulmonary-bilateral expiratory wheezes, no rales or rhonchi, unlabored breathing, no accessory muscle use. Abdomen-lower abdomen has large surgical scar, soft, nondistended, normal bowel sounds, mild tenderness to palpation of left lower quadrant, no guarding Pelvic-patient is status post vulvectomy, dark red bleeding from the vagina present, anterior vaginal wall prolapse, pelvic bones exposed bilaterally and appear to be irritating prolapse.
[2019-01-25] MEDS: Ipratropium/Albuterol Neb 3 ML IH SCH ×6 (04:14→23:42)
[2019-01-25 04:57] LABS: Hematocrit 29.7 % (35.3-44.9)
[2019-01-25 04:58] LABS: Hemoglobin 9.2 g/dL (11.5-15.4)
[2019-01-25] MEDS ORDERED: 0.9 % Sodium Chloride 1,000 ML IVC SCH (05:45)
--- NOTE | 2019-01-25 06:13 | OB/GYN Consult Note ---
Date of Encounter: 01/25/19 Time of Encounter: 06:09 Assessment and Plan (1) Vulvar cancer Current Visit: Yes Status: Acute Patient's a 63 female history of vulvar cancer status post resection with known delayed healing now presents with bright red vaginal bleeding while in the hospital for treatment of the pneuomonia; bleeding was quite active the hem oglobin is pending at this point her pulses somewhat faster monitor blood pressures lower than it was earlier in the shift. She does awaken easily and Indicates appropriately active bleeding and obvious Anterior vaginal wall defect with the anterior vaginal wall were the bladder wall prolapse into the vagina.I have advised patient this point I would need to come salt with her gynecologic oncologist however presently she is undergoing transfusion and I have attempted to control the bleeding with Padilla coagulation and to ensure perform vaginal packing Placed in the vagina gently replaced in the anterior vaginal defect. I suspect the patient's cleared medically from pulmonology standpoint we will likely need to transfer to proceed, gynecologic oncology for further treatment recommendations. She also likely will need adjustment of her anticoagulants. (2) Acute exacerbation of chronic obstructive airways disease Current Visit: Yes Status: Acute (3) Generalized weakness Current Visit: Yes Status: Acute (4) Influenza A Current Visit: Yes Status: Acute (5) Sepsis Current Visit: Yes Status: Acute Qualifiers: Sepsis type: sepsis due to unspecified organism Qualified Code(s): A41.9 - Sepsis, unspecified organism History of Present Illness Consult date: 01/25/19 Reason for consult: other (Vulvar bleeding, history of vulvar cancer status post vulvectomy and radiation therapy) Chief complaint: Admitted for pneumonia with hypoxemia with vulvar bleeding History of present illness: Patient's 63-year-old female status post vulvectomy and radiation therapy at the [facility] in [facility]. She states she still has uterus and ovaries had no other gynecologic problems until been determined to have vulvar cancer requiring vulvectomy in 2016. She has decreased bladder function has nephrostomy tubes. She does have history of DVT for which she is on Xeralto. Dates that had been considered grafting as she does have exposed bone in the vaginal area there since she did not been having problems related to this has not had recent follow-up. I am now consult after she had approximate 500 mL of bright red bleeding with large clots from the vagina this evening. She has no chest pain or shortness of breath she has no history of similar complaints she denies abnormal discharge prior to the bleeding Past Med Surg Social Fam HX - Past Medical History Source: patient, old records reviewed Medical history: cancer, COPD, GERD, other Additional medical history: VULVA CANCER Psychiatric history: depression - Past Surgical History Surgical History: cholecystectomy, orthopedic, other, other Additional surgical history: SPINAL FUSION. ORIF. PARTIAL VULVECTOMY. BI- LATERAL NEPHROSTOMY. EXTENSIVE ABDOMINAL SURGERY DUE TO SEPSIS - Social History Smoking Status: Current every day smoker Packs per day: 1 Smokeless Tobacco Status: No Alcohol use: none Drug use: none - Family History Mother Living Status: Age at : 84 Cause of : kidney failure Hx Family Cardiac Disorders: Yes Hx Family Respiratory Disorders: Yes Hx Family Genitourinary Disorders: Yes Hx Family Medical Disorders: Yes Medications and Allergies Citalopram [CeleXA] 40 mg PO DAILY 02/16/17 [History] Docusate [Colace] 200 mg PO DAILY 02/16/17 [History] Gabapentin [Neurontin] 600 mg PO TID 02/16/17 [History] Rivaroxaban [Xarelto] 20 mg PO 1700 02/16/17 [History] HYDROmorphone [Dilaudid] 4 mg PO DAILY 03/14/17 [History] OxyCODONE Immed Rel [Roxicodone 10 MG] 7.5 mg PO BID 03/14/17 [History] Ferrous Sulfate [Iron] 325 mg PO DAILY 01/19/19 [History] Loperamide HCl [Imodium A-D] 2 mg PO 8XD 01/19/19 [History] Ondansetron ODT [Zofran ODT] 8 mg SL Q6HR 01/19/19 [History] OxyCODONE ER (12 HR) [OxyCONTIN] 20 mg PO Q12HR 01/19/19 [History] Megestrol Acetate [Megace] 40 mg PO BID 01/22/19 [History] Allergy/AdvReac Type Severity Reaction Status Date / Time acetaminophen [From [place]] Allergy Rash Verified 01/22/19 13:47 codeine Allergy Rash Verified 01/22/19 13:47 Erythromycin Base Allergy Rash Verified 01/22/19 13:47 hydrocodone [From [place]] Allergy Rash Verified 01/22/19 13:47 Exam - Vital Signs Vital signs: Initial Vital Signs Temp Pulse Resp BP Pulse Ox 98 F 103 16 93/70 94 01/21/19 08:21 01/21/19 08:21 01/21/19 08:21 01/21/19 08:21 01/21/19 08:21 - Constitutional Constitutional: no acute distress, mild distress - HEENT HEENT: Oral Lesions, EOMI, PERRL - Neck Neck exam: full ROM, lymphadenopathy, nuchal rigidity - Lungs Respiratory exam: CTAB - Cardiovascular Cardiovascular exam: RRR - Abdomen Abdomen: Present: bowel sounds normal - Extremities Extremities exam: full ROM - Comments Comments: Pelvic external vulvectomy of labia majora noted there is a prolapse proximally, pulse size of anterior vaginal introitus. Uterus several large chunks saturated which would account for at least 500 mL of blood earlier in the trash can currently her intravaginal was quite thin and atrophic and inflamed with active bleeding. I cannot palpate uterus or adnexa there is no obvious uterine or adnexal masses or any other masses and pelvic sidewalls. Results Result Diagrams: 01/25/19 04:33 01/23/19 05:22 Abnormal lab results WBC 3.3 K/mcL (4.3-11.1) L 01/24/19 06:17 Hgb 9.2 g/dL (11.5-15.4) L D 01/25/19 04:33 Hct 29.7 % (35.3-44.9) L 01/25/19 04:33 MCHC 30.9 g/dL (31.6-35.5) L 01/24/19 06:17 RDW 18.5 % (11.5-14.5) H 01/24/19 06:17 MPV 8.6 fL (9.4-12.4) L 01/24/19 06:17 Reactive Lymphocytes Present (Not Present) A 01/24/19 06:17 PT 17.1 Seconds (9.4-12.1) H 01/25/19 01:38 Heparin Anti-Xa, Unfract 1.63 IU/mL (0.30-0.70) H* 01/25/19 01:38 Chloride 109 mEq/L (98-107) H 01/23/19 05:22 Creatinine 0.49 mg/dL (0.60-1.20) L 01/23/19 05:22 BUN/Creatinine Ratio 27 (6-26) H 01/23/19 05:22 Calcium 8.3 mg/dL (8.6-10.3) L 01/23/19 05:22 Troponin I 0.05 ng/mL (< 0.04) H* 01/22/19 06:41 B-Natriuretic Peptide 440 pg/mL (Less than 100) H 01/21/19 10:09 Influenza A (H3) PCR DETECTED (Not Detect) A 01/21/19 11:02 All other labs normal. Consult Discharge Plan - Plan Referrals: Nikki Crowley, STUDIO OWNER [Primary Care Provider] -
[2019-01-25] MEDS: *HR* OxyCODONE ER (12 HR) 10 MG TABLET PO SCH ×2 (07:02→17:54)
[2019-01-25] MEDS: Budesonide/Formoterol 80/4.5 MDI IH SCH ×2 (07:41→19:53)
[2019-01-25 08:52] LABS: Hematocrit 32.6 % (35.3-44.9); Hemoglobin 10.4 g/dL (11.5-15.4)
[2019-01-25] MEDS: predniSONE 20 MG TABLET PO SCH (09:07)
[2019-01-25] MEDS: Gabapentin 300 MG CAPSULE PO SCH ×3 (09:07→21:37)
[2019-01-25] MEDS: Nicotine 21 MG PATCH.TD24 TD SCH (09:08)
[2019-01-25] MEDS: *HR* HYDROmorphone 4 MG TABLET PO SCH (09:09)
--- NOTE | 2019-01-25 17:08 | Internal Med Progress Note ---
Hospitalist Progress Note - Encounter Date of Encounter: 01/25/19 Time of Encounter: 09:00 - Subjective Interval History: Patient laying on bed comfortably. Denies dizziness/lightheaded/shortness of breath/chest pain. Overnight event noticed. Patient has virginal bleeding which is packed by COWLMAN. I was called today by COWLMAN consult. Our COWLMAN do ctor called patient's COWLMAN oncologist in [place] and the COWLMAN oncologist does not recommend transfer at this point. Will continue monitor patient closely. No further active bleeding identified. - Exam Vitals: Temp Pulse Resp BP Pulse Ox 98.8 F 99 17 93/63 95 01/25/19 11:31 01/25/19 15:29 01/25/19 15:29 01/25/19 15:29 01/25/19 15:29 Exam: General: Patient is alert, no acute distress, oriented x 3 ENT: Mucous membranes moist Respiratory: Mild wheezing. Prolonged expiratory phase Cardiovascular: Regular rate and rhythm. s1 and s2 normal No clicks, rubs, gallops, or murmurs. Mild pedal edema Abdomen: Abdomen is soft, nontender. Bilateral nephrostomy tubes in place. Bowel sounds are present Musculoskeletal: Spontaneously moving all extremities Skin: warm, dry, intact. Neuro: Alert oriented x 3 normal cranial nerves, no focal deficits - Assessment and Plan (1) Pyelonephritis, acute Current Visit: Yes Status: Ruled-out Assessment and Plan: Discussed with infectious disease. Urine cultures growing multiple bacteria which are most likely contaminant. No further antibiotics indicated per infectious disease. antibiotics stopped. (2) Acute exacerbation of chronic obstructive airways disease Current Visit: Yes Status: Acute Assessment and Plan: Continue bronchodilators. Continue to taper steroids. O2 supplementation as needed to keep sats greater than 90%. Significantly improved at this point. (3) Elevated troponin Current Visit: Yes Status: Acute Assessment and Plan: Likely due to demand ischemia. Patient has no chest pain. Troponin trended down to 0.05. (4) Pneumonia Current Visit: Yes Status: Acute Assessment and Plan: Discussed with infectious disease. We will stop antibiotics. Pneumonia likely due to influenza A. Continue Tamiflu to finish 5 day course (5) Influenza A Current Visit: Yes Status: Acute Assessment and Plan: Complete Tamiflu course. Clinically patient is doing much better today. (6) Leukopenia Current Visit: Yes Status: Acute Assessment and Plan: Improving. WBC 3.3 today. (7) Generalized weakness Current Visit: Yes Status: Acute Assessment and Plan: Patient with generalized weakness. We will consult physical therapy for evaluation. Patient may need placement to skilled rehabilitation. (8) Vaginal bleeding Current Visit: Yes Status: Acute Assessment and Plan: Overnight event note reviewed. Patient has active vaginal bleeding. She has history of vaginal cancer S/P radiation and chemotherapy. - COWLMAN consult appreciated. Active bleeding is stopped after vaginal packing. Continue hold xarelto. - Closely monitor H/H - Discussed with COWLMAN consult, will not transfer patient at this point, patient needs to follow-up with COWLMAN as outpatient and follow up with COWLMAN oncologist in [place] as outpatient. (9) DVT (deep venous thrombosis) Current Visit: Yes Status: Acute Assessment and Plan: History of DVT on lower extremity since 5 years ago. Patient is on anticoagulation since then. Will hold xarelto now because of active bleeding. (10) Vulvar cancer Current Visit: Yes Status: Acute Assessment and Plan: S/P radiation and chemotherapy. Management as above DVT Prophylaxis: EPCDs - Time Spent with Patient Total time spent is greater than 50% in coordination of care (as documented) at patient's floor/unit and/or counseling patient: 30 min 25 - 35 minutes Plan of Care Discussed with: patient Internal Medicine: Result - Labs CBC & Chem 7: 01/25/19 14:23 01/23/19 05:22 Labs: Short CBC 01/25/19 01/25/19 01/25/19 Range/Units 01:38 04:33 08:39 Hgb 11.9 9.2 L D 10.4 L (11.5-15.4) g/dL Hct 38.7 29.7 L 32.6 L (35.3-44.9) % 01/25/19 Range/Units 14:23 Hgb 9.8 L (11.5-15.4) g/dL Hct (35.3-44.9) % - ABG Interpretation ABG results: PT/INR, D-dimer PT 17.1 Seconds (9.4-12.1) H 01/25/19 01:38 - Impressions Impressions Abdomen/Pelvis CT 01/25/19 01:28 IMPRESSION: 1. Status post vulvectomy. 2. Large bladder calculus. 3. Diverticulosis without scan evidence for diverticulitis. D/ / Parth Beltran MD / Parth Beltrna MD Interpreting Provider: Parth Beltran MD Consult Discharge Plan - Plan Referrals: Nikki Crowley, DOLL DRESSER [Primary Care Provider] - (4) Pneumonia Qualifiers: Pneumonia type: due to influenza A virus Laterality: bilateral Lung location: lower lobe of lung Qualified Code(s): J11.00 - Influenza due to unidentified influenza virus with unspecified type of pneumonia (6) Leukopenia Qualifiers: Leukopenia type: neutropenia Neutropenia type: due to infection Qualified Code(s): D70.3 - Neutropenia due to infection (9) DVT (deep venous thrombosis) Qualifiers: DVT location: lower extremity Affected thrombotic vein of extremity: unspecified vein of extremity Chronicity: chronic Laterality: unspecified laterality Qualified Code(s): I82.509 - Chronic embolism and thrombosis of unspecified deep veins of unspecified lower extremity
--- NOTE | 2019-01-25 17:42 | Electrocardiograph Report ---
[address] [place], [place] [address] Test Date: 2019-01-22 Pat Name: Macey Bailon Department: 111 Room: 2NE33 Gender: F Shale Miner: : 1955 Requested By: Gene Morocho Order Number: [id number] Reading MD: Edilia Silverman Measurements Intervals [place] Rate: 84 P: 64 OR: 124 QRS: 14 QRSD: 102 T: -54 QT: 400 QTc: 441 Interpretive Statements SINUS RHYTHM WITH SINUS ARRHYTHMIA INCOMPLETE RIGHT BUNDLE BRANCH BLOCK SEPTAL MYOCARDIAL INFARCTION, OF INDETERMINATE AGE MODERATE T-WAVE ABNORMALITY, CONSIDER ANTERIOR ISCHEMIA Electronically Signed On 01-25-2019 17:41:19 EDT by Edilia Silverman
[2019-01-26 03:30] LABS: Basophils % 0.1 %; Hemoglobin 9.7 g/dL (11.5-15.4); Immature Granulocytes % 1.3 % (0-4); Lymphocytes # 1.2 K/mcL (0.6-4.6); Lymphocytes % 14.5 %; Mean Corpuscular HGB Conc 32.3 g/dL (31.6-35.5); Mean Corpuscular Hemoglobin 30.4 pg (28.0-33.3); Mean Platelet Volume 8.4 fL (9.4-12.4); Monocytes % 11.7 %; Neutrophils # 5.9 K/mcL (1.6-8.9); Platelet Count 223 K/mcL (140-400); Red Blood Count 3.19 M/mcL (3.82-4.97); Red Cell Distribution Width 17.2 % (11.5-14.5); Segmented Neutrophils % 72.4 %
[2019-01-26 03:48] LABS: BUN/Creatinine Ratio 29 (6-26); Blood Urea Nitrogen 12 mg/dL (8-23); Calcium 7.6 mg/dL (8.6-10.3); Carbon Dioxide 27 mEq/L (23-29); Chloride 111 mEq/L (98-107); Glucose 86 mg/dL (70-105); Osmolality,Calculated 287 (280-300); Potassium 4.2 mEq/L (3.5-5.1); Sodium 139 mEq/L (136-145); eGFR For Non-African Americans > 60 (> 60)
[2019-01-26] MEDS: Ipratropium/Albuterol Neb 3 ML IH SCH ×6 (03:52→23:51)
[2019-01-26] MEDS: Ondansetron ODT 4 MG TAB.RAPDIS SL SCH ×3 (06:11→17:26)
[2019-01-26] MEDS: *HR* OxyCODONE ER (12 HR) 10 MG TABLET PO SCH ×2 (06:16→17:36)
[2019-01-26] MEDS: Budesonide/Formoterol 80/4.5 MDI IH SCH ×2 (07:35→19:50)
[2019-01-26] MEDS: *HR* HYDROmorphone 4 MG TABLET PO SCH (11:03)
[2019-01-26] MEDS: predniSONE 20 MG TABLET PO SCH (11:03)
[2019-01-26] MEDS: Nicotine 21 MG PATCH.TD24 TD SCH (11:03)
[2019-01-26] MEDS: Gabapentin 300 MG CAPSULE PO SCH ×3 (11:03→20:15)
[2019-01-26] MEDS: Ibuprofen 400 MG TABLET PO SCH ×2 (11:03→17:24)
--- NOTE | 2019-01-26 15:57 | Internal Med Progress Note ---
Hospitalist Progress Note - Encounter Date of Encounter: 01/26/19 Time of Encounter: 09:00 - Subjective Interval History: Patient feels fine. No dizziness or lightheaded. No nausea or vomiting. No further vaginal bleeding. Vitals are stable. Still have mild cough but no shortness of breath. - Exam Vitals: Temp Pulse Resp BP Pulse Ox 98.6 F 87 16 95/58 95 01/26/19 11:50 01/26/19 11:50 01/26/19 15:45 01/26/19 11:50 01/26/19 15:45 Exam: General: Patient is alert, no acute distress, oriented x 3 ENT: Mucous membranes moist Respiratory: CTA, no wheezing Cardiovascular: Regular rate and rhythm. s1 and s2 normal No clicks, rubs, gallops, or murmurs. Mild pedal edema Abdomen: Abdomen is soft, nontender. Bilateral nephrostomy tubes in place. Bowel sounds are present Musculoskeletal: Spontaneously moving all extremities Skin: warm, dry, intact. Neuro: Alert oriented x 3 normal cranial nerves, no focal deficits - Assessment and Plan (1) Pyelonephritis, acute Current Visit: Yes Status: Ruled-out Assessment and Plan: Discussed with infectious disease. Urine cultures growing multiple bacteria which are most likely contaminant. No further antibiotics indicated per infectious disease. antibiotics stopped. (2) Acute exacerbation of chronic obstructive airways disease Current Visit: Yes Status: Acute Assessment and Plan: Continue bronchodilators. Continue to taper steroids. O2 supplementation as needed to keep sats greater than 90%. Significantly improved at this point. (3) Elevated troponin Current Visit: Yes Status: Acute Assessment and Plan: Likely due to demand ischemia. Patient has no chest pain. Troponin trended down to 0.05. (4) Pneumonia Current Visit: Yes Status: Acute Assessment and Plan: Discussed with infectious disease. We will stop antibiotics. Pneumonia likely due to influenza A. Finished Tamiflu 5 day course (5) Influenza A Current Visit: Yes Status: Acute Assessment and Plan: Completed Tamiflu course. Clinically patient is doing much better now. (6) Leukopenia Current Visit: Yes Status: Acute Assessment and Plan: Improving. WBC 8.2 today. (7) Generalized weakness Current Visit: Yes Status: Acute Assessment and Plan: Patient with generalized weakness. We will consult physical therapy for evaluation. Patient may need placement to skilled rehabilitation. (8) Vaginal bleeding Current Visit: Yes Status: Acute Assessment and Plan: Overnight event note reviewed. Patient has active vaginal bleeding. She has history of vaginal cancer S/P radiation and chemotherapy. - MARKET RESEARCH COORDINATOR consult appreciated. Active bleeding is stopped after vaginal packing. Continue hold xarelto. - Closely monitor H/H - Discussed with MARKET RESEARCH COORDINATOR consult, will not transfer patient at this point, patient needs to follow-up with MARKET RESEARCH COORDINATOR as outpatient and follow up with MARKET RESEARCH COORDINATOR oncologist in [place] as outpatient. (9) DVT (deep venous thrombosis) Current Visit: Yes Status: Acute Assessment and Plan: History of DVT on lower extremity since 3 years ago. Patient is on anticoagulation since then. Will hold xarelto now because of active bleeding. - Repeated venous Doppler bilaterally shows negative for DVT or SVT. - We will continue hold xarelto at this point, patient will follow-up with PCP regarding whether she needs to restart anticoagulation or not after discharge. (10) Vulvar cancer Current Visit: Yes Status: Acute Assessment and Plan: S/P radiation and chemotherapy. Management as above DVT Prophylaxis: EPCDs - Time Spent with Patient Total time spent is greater than 50% in coordination of care (as documented) at patient's floor/unit and/or counseling patient: 25 - 35 minutes Plan of Care Discussed with: patient Internal Medicine: Result - Labs CBC & Chem 7: 01/26/19 03:16 01/26/19 03:16 Labs: Short CBC 01/25/19 01/26/19 Range/Units 20:47 03:16 WBC 8.2 D (4.3-11.1) K/mcL Hgb 10.0 L 9.7 L (11.5-15.4) g/dL Hct 30.0 L (35.3-44.9) % Plt Count 223 D (140-400) K/mcL Neutrophils # 5.9 (1.6-8.9) K/mcL BMP 01/26/19 03:16 Sodium 139 Potassium 4.2 Chloride 111 H Carbon Dioxide 27 BUN 12 Creatinine 0.41 L Glucose 86 Calcium 7.6 L - ABG Interpretation ABG results: PT/INR, D-dimer PT 17.1 Seconds (9.4-12.1) H 01/25/19 01:38 Consult Discharge Plan - Plan Referrals: Nikki Crowley FACILITY MAINTENANCE MECHANIC [Primary Care Provider] - (4) Pneumonia Qualifiers: Pneumonia type: due to influenza A virus Laterality: bilateral Lung location: lower lobe of lung Qualified Code(s): J11.00 - Influenza due to unidentified influenza virus with unspecified type of pneumonia (6) Leukopenia Qualifiers: Leukopenia type: neutropenia Neutropenia type: due to infection Qualified Code(s): D70.3 - Neutropenia due to infection (9) DVT (deep venous thrombosis) Qualifiers: DVT location: lower extremity Affected thrombotic vein of extremity: unspecified vein of extremity Chronicity: chronic Laterality: unspecified laterality Qualified Code(s): I82.509 - Chronic embolism and thrombosis of unspecified deep veins of unspecified lower extremity
[2019-01-27] MEDS: Ibuprofen 400 MG TABLET PO SCH ×3 (00:46→16:27)
[2019-01-27] MEDS: Ondansetron ODT 4 MG TAB.RAPDIS SL SCH ×4 (00:46→17:48)
[2019-01-27] MEDS: Ipratropium/Albuterol Neb 3 ML IH SCH ×6 (03:45→23:50)
[2019-01-27 05:39] LABS: Hematocrit 29.1 % (35.3-44.9); Hemoglobin 9.4 g/dL (11.5-15.4); Immature Granulocytes % 1.2 % (0-4); Lymphocytes % 9.9 %; Mean Corpuscular HGB Conc 32.3 g/dL (31.6-35.5); Mean Corpuscular Hemoglobin 30.9 pg (28.0-33.3); Mean Corpuscular Volume 95.7 fL (83.0-100.0); Mean Platelet Volume 8.4 fL (9.4-12.4); Platelet Count 263 K/mcL (140-400); Red Blood Count 3.04 M/mcL (3.82-4.97); Red Cell Distribution Width 17.5 % (11.5-14.5); Segmented Neutrophils % 79.8 %
[2019-01-27 05:40] LABS: Eosinophils # 0.1 K/mcL (0.0-0.6); Eosinophils % 0.6 %; Lymphocytes # 1.1 K/mcL (0.6-4.6); Monocytes # 0.9 K/mcL (0.0-1.3); Monocytes % 8.5 %; Neutrophils # 8.6 K/mcL (1.6-8.9)
[2019-01-27] MEDS: *HR* OxyCODONE ER (12 HR) 10 MG TABLET PO SCH ×2 (06:11→17:48)
[2019-01-27] MEDS: Budesonide/Formoterol 80/4.5 MDI IH SCH ×2 (07:58→20:10)
[2019-01-27] MEDS: Nicotine 21 MG PATCH.TD24 TD SCH (09:27)
[2019-01-27] MEDS: predniSONE 20 MG TABLET PO SCH (09:28)
[2019-01-27] MEDS: Gabapentin 300 MG CAPSULE PO SCH ×3 (09:28→20:25)
[2019-01-27] MEDS: *HR* HYDROmorphone 4 MG TABLET PO SCH (09:28)
--- NOTE | 2019-01-27 12:55 | Discharge Summary ---
Orders not resulted at time of discharge: Pending orders 01/25/19 01:38 Red Blood Cells [BBK] Stat Type and Screen [BBK] Stat Date of Encounter: 01/27/19 Time of Encounter: 11:00 - Discharge Diagnosis (1) Pyelonephritis, acute Priority: Secondary Status: Inactive (2) Acute exacerbation of chronic obstructive airways disease Priority: Primary Status: Acute (3) Elevated troponin Priority: Secondary Status: Acute (4) Pneumonia Priority: Secondary Status: Acute Qualifiers: Pneumonia type: due to influenza A virus Laterality: bilateral Lung location: lower lobe of lung Qualified Code(s): J11.00 - Influenza due to unidentified influenza virus with unspecified type of pneumonia (5) Influenza A Priority: Primary Status: Acute (6) Leukopenia Priority: Secondary Status: Acute Qualifiers: Leukopenia type: neutropenia Neutropenia type: due to infection Qualified Code(s): D70.3 - Neutropenia due to infection (7) Generalized weakness Priority: Secondary Status: Acute (8) Vaginal bleeding Priority: Primary Status: Acute (9) DVT (deep venous thrombosis) Priority: Secondary Status: Acute Qualifiers: DVT location: lower extremity Affected thrombotic vein of extremity: unspecified vein of extremity Chronicity: chronic Laterality: unspecified laterality Qualified Code(s): I82.509 - Chronic embolism and thrombosis of unspecified deep veins of unspecified lower extremity (10) Vulvar cancer Priority: Secondary Status: Acute Hospital course: Ms. Bailon is a 63 year old female admitted for influenza A, bronchitis, and COPD exacerbation. Patient was treated with Tamiflu, steroid, and bronchodilator. After treatment, her shortness of breath has significantly improved. Wheezing resolved. Patient has finished a 5 day Tamiflu course. Hospitalization complicated with vaginal bleeding. Patient has vulvar cancer and status post vulvectomy and radiation therapy, which was 3 years ago in [facility]. Urgent BUILDING ENERGY RETROFIT TECHNICIAN consult was called. Active bleeding stopped after packing and [place] coagulation by BUILDING ENERGY RETROFIT TECHNICIAN. Patient has history of DVT (since 3 years ago)on xarelto, which is on hold because of active bleeding. Patient has no active bleeding for 2 days. She received 1 unit of PRBC and hemoglobin stable in last 2 days. Further discussed with BUILDING ENERGY RETROFIT TECHNICIAN consult, patient needed restructive surgery to prevent further bleeding. [facility]. I called [facility] first but was told that he cannot perform such kind of surgery and recommend to go to [facility]. Called [facility] and patient was accepted by [facility]. I have seen and examined the patient today. Patient is awake alert, in no acute distress. Vitals are stable. No active bleeding identified. Lungs are clear bilaterally, no wheezing. Will continue tapering down steroids at prednisone 20 mg daily upon discharge, can be further tapered down to stop. We will continue hold home medication xarelto. Patient had bilateral venous Doppler done, negative for DVT/SVT. Patient will transferred to [facility] as bed is available. Discharge discussed with: patient - Time Spent with Patient Total time spent providing and/or coordinating discharge services: 40 minutes Time spent: Greater than 30 minutes - Discharge Medications Prescriptions: New Ipratropium/Albuterol Neb [Duoneb] 3 ml IH [id number] inhsol predniSONE [PredniSONE] 20 mg PO DAILY tablet Budesonide/Formoterol 80/4.5 [Symbicort 80/4.5] 2 puff IH BIDR inhaler Continue Megestrol Acetate [Megace] 40 mg PO BID Gabapentin [Neurontin] 600 mg PO TID Docusate [Colace] 200 mg PO DAILY Citalopram [CeleXA] 40 mg PO DAILY OxyCODONE Immed Rel [Roxicodone 10 MG] 7.5 mg PO BID HYDROmorphone [Dilaudid] 4 mg PO DAILY OxyCODONE ER (12 HR) [OxyCONTIN] 20 mg PO Q12HR Ferrous Sulfate [Iron] 325 mg PO DAILY Ondansetron ODT [Zofran ODT] 8 mg SL Q6HR Discontinued Rivaroxaban [Xarelto] 20 mg PO 1700 No Action Loperamide HCl [Imodium A-D] 2 mg PO 8XD Home Medications: Citalopram [CeleXA] 40 mg PO DAILY 02/16/17 [History] Docusate [Colace] 200 mg PO DAILY 02/16/17 [History] Gabapentin [Neurontin] 600 mg PO TID 02/16/17 [History] HYDROmorphone [Dilaudid] 4 mg PO DAILY 03/14/17 [History] OxyCODONE Immed Rel [Roxicodone 10 MG] 7.5 mg PO BID 03/14/17 [History] Ferrous Sulfate [Iron] 325 mg PO DAILY 01/19/19 [History] Loperamide HCl [Imodium A-D] 2 mg PO 8XD 01/19/19 [History] Ondansetron ODT [Zofran ODT] 8 mg SL Q6HR 01/19/19 [History] OxyCODONE ER (12 HR) [OxyCONTIN] 20 mg PO Q12HR 01/19/19 [History] Megestrol Acetate [Megace] 40 mg PO BID 01/22/19 [History] Budesonide/Formoterol 80/4.5 [Symbicort 80/4.5] 2 puff IH BIDR inhaler 01/27/19 [Rx] Ipratropium/Albuterol Neb [Duoneb] 3 ml IH [id number] inhsol 01/27/19 [Rx] predniSONE [PredniSONE] 20 mg PO DAILY tablet 01/27/19 [Rx] Allergies/Adverse Reactions: Allergy/AdvReac Type Severity Reaction Status Date / Time acetaminophen [From [place]] Allergy Rash Verified 01/22/19 13:47 codeine Allergy Rash Verified 01/22/19 13:47 Erythromycin Base Allergy Rash Verified 01/22/19 13:47 hydrocodone [From [place]] Allergy Rash Verified 01/22/19 13:47 Date of admission: 01/21/19 12:08 Primary care physician: Nikki Crowley CNP Consults: 01/21/19 12:08 Consult to Nutrition [CONS] Routine Comment: Consulting Provider: NUTRITION Reason for Dietary Consult: PO Supplementation 01/21/19 18:14 Consult to Water And Sewer Systems Supervisor [CONS] Routine Reason for SW Consult: assess for discharge needs 01/23/19 11:37 Consult to Infectious Diseases [CONS] Routine Consulting Provider: Infectious Disease [place] Reason for Consult: Multiple bacteria in Kidney culture done at [facility] Time Notified: 11:38 Call Completed: Yes 01/24/19 09:23 Consult to Nurse Navigator [CONS] Routine Comment: COPD and pneumonia 01/24/19 09:29 Consult to Occupational Therapy [CONS] Routine Comment: Evaluate, develop and implement POC Reason for Consult: Assess for possible rehab at discharge; clinically ok to d/c Does patient have active BEDREST order?: No Is patient medically & hemodynamically stable?: Yes Consult to Physical Therapy [CONS] Routine Comment: Evaluate, develop and implement POC Reason for Consult: Assess for possible rehab at discharge; clinically ok for d/c Does patient have active BEDREST order?: No Is patient medically & hemodynamically stable?: Yes 01/25/19 04:45 Consult to PATIENT SERVICES SPECIALIST [CONS] Routine Consulting Provider: BUILDING ENERGY RETROFIT TECHNICIAN [place] Reason for Consult: Vaginal bleeding, s/p vulvectomy in 2016, pelvic bones exposed and lacerating prolapse. Call Completed: No Discharging clinician: Noemy Bertrand Anticipated date of discharge: 01/27/19 - Constitutional Vitals: Temp Pulse Resp BP Pulse Ox 98.2 F 102 16 87/54 93 01/27/19 11:08 01/27/19 11:08 01/27/19 11:41 01/27/19 11:08 01/27/19 11:41 Exam: General: Patient is alert, no acute distress, oriented x 3 ENT: Mucous membranes moist Respiratory: CTA, no wheezing Cardiovascular: Regular rate and rhythm. s1 and s2 normal No clicks, rubs, gallops, or murmurs. Mild pedal edema Abdomen: Abdomen is soft, nontender. Bilateral nephrostomy tubes in place. Bowel sounds are present Musculoskeletal: Spontaneously moving all extremities Skin: warm, dry, intact. Neuro: Alert oriented x 3 normal cranial nerves, no focal deficits - Patient Status Disposition: Transfer Critical Access Hosp Condition: Good Functional capacity at discharge: bed bound Overall status at discharge: patient is not back to baseline - Discharge Instructions Follow Up With: Nikki Crowley, COMMERCIAL LITIGATION ATTORNEY [Primary Care Provider] - - Diet and Activity Diet: low fat, low cholesterol, low salt diet
[2019-01-27 21:10] VITALS: BP 99/59
== END 2019-01-28 | disposition critical access hospital (66) | DRG 853 ==
LOC: 2NENU → SUATTDRO 12:08
PROVIDERS: ADMIT Pediatrics; ATTEND Internal Medicine

== ENCOUNTER 2020-06-18 22:43 | Inpatient (IN) ==
[2020-06-19] MEDS ORDERED: Naloxone 0.4 MG/ML INJ IVP PRN (01:43)
[2020-06-19] MEDS: 0.9 % Sodium Chloride 1,000 ML IVC SCH ×2 (03:18→11:10)
[2020-06-19] MEDS: Nicotine 21 MG PATCH.TD24 TD SCH (05:33)
[2020-06-19 06:12] LABS: Hematocrit 43.3 % (35.3-44.9); Hemoglobin 13.1 g/dL (11.5-15.4); Mean Corpuscular HGB Conc 30.3 g/dL (31.6-35.5); Mean Corpuscular Hemoglobin 25.2 pg (28.0-33.3); Mean Corpuscular Volume 83.3 fL (83.0-100.0); Mean Platelet Volume 8.3 fL (9.4-12.4); Platelet Count 199 K/mcL (140-400); Red Cell Distribution Width 17.7 % (11.5-14.5); White Blood Count 6.3 K/mcL (4.3-11.1)
[2020-06-19 06:29] LABS: Alanine Aminotransferase 5 Units/L (7-52); Albumin/Globulin Ratio 0.8 (1.1-2.2); Alkaline Phosphatase 107 Units/L (34-104); Aspartate Amino Transferase 10 Units/L (13-39); BUN/Creatinine Ratio 9 (6-26); Bilirubin,Total 0.4 mg/dL (0.3-1.0); Blood Urea Nitrogen 6 mg/dL (8-23); Calcium 8.5 mg/dL (8.6-10.3); Carbon Dioxide 23 mEq/L (23-29); Chloride 106 mEq/L (98-107); Globulin 3.6 g/dL (2.4-3.5); Glucose 61 mg/dL (70-105); Magnesium 1.8 mg/dL (1.6-2.6); Osmolality,Calculated 278 (280-300); Phosphorous 3.6 mg/dL (2.7-4.5); Potassium 3.9 mEq/L (3.5-5.1); Sodium 136 mEq/L (136-145); Total Protein 6.6 g/dL (6.4-8.9); eGFR For African Americans > 60 (> 60); eGFR For Non-African Americans > 60 (> 60)
[2020-06-19] MEDS ORDERED: *HR* Rivaroxaban 10 MG TABLET PO SCH (09:00)
[2020-06-19] MEDS ORDERED: cefTRIAXone 1,000 MG in Water for inj. (sterile) 10 ML IVP SCH (09:00)
[2020-06-19] MEDS: Budesonide/Formoterol 80/4.5 1 PUFF INH IH SCH ×2 (11:12→21:52)
[2020-06-19] MEDS ORDERED: 0.9 % Sodium Chloride 500 ML ONE ×2 (13:33→18:53)
[2020-06-19] MEDS ORDERED: Isovue-300 50ML VIAL IVP ONE (14:08)
[2020-06-19] MEDS ORDERED: D5% in 0.45% NACL 1,000 ML IVC SCH (14:30)
[2020-06-19] MEDS: Gabapentin 300 MG CAPSULE PO SCH ×2 (15:19→19:42)
[2020-06-19] MEDS: *HR* OxyCODONE ER (12 HR) 20 MG TABLET PO SCH (15:20)
[2020-06-19] MEDS ORDERED: *HR* OxyCODONE ER (12 HR) 20 MG TABLET PO SCH (18:00)
[2020-06-19] MEDS ORDERED: 0.9 % Sodium Chloride 500 ML IV ONE (18:52)
[2020-06-19] MEDS ORDERED: Acetaminophen IV 1,000 MG/100 ML INFUS..BTL IVPB ONE (19:30)
[2020-06-19] MEDS: Piperacillin/Tazobactam 3.375 GM in 0.9 % Sodium Chloride Mini Bag 100 ML IVPB SCH (21:42)
[2020-06-20 02:57] LABS: Hematocrit 38.5 % (35.3-44.9); Mean Corpuscular HGB Conc 31.2 g/dL (31.6-35.5); Mean Corpuscular Hemoglobin 26.3 pg (28.0-33.3); Mean Corpuscular Volume 84.2 fL (83.0-100.0); Mean Platelet Volume 8.6 fL (9.4-12.4); Platelet Count 176 K/mcL (140-400); Red Blood Count 4.57 M/mcL (3.82-4.97); Red Cell Distribution Width 17.6 % (11.5-14.5)
[2020-06-20 03:10] LABS: BUN/Creatinine Ratio 9 (6-26); Blood Urea Nitrogen 6 mg/dL (8-23); Calcium 7.9 mg/dL (8.6-10.3); Carbon Dioxide 23 mEq/L (23-29); Chloride 105 mEq/L (98-107); Glucose 121 mg/dL (70-105); Osmolality,Calculated 277 (280-300); Potassium 3.4 mEq/L (3.5-5.1); Sodium 134 mEq/L (136-145); eGFR For African Americans > 60 (> 60); eGFR For Non-African Americans > 60 (> 60)
[2020-06-20] MEDS: *HR* OxyCODONE ER (12 HR) 20 MG TABLET PO SCH ×3 (04:56→22:29)
[2020-06-20] MEDS: Nicotine 21 MG PATCH.TD24 TD SCH (05:03)
[2020-06-20] MEDS: Piperacillin/Tazobactam 3.375 GM in 0.9 % Sodium Chloride Mini Bag 100 ML IVPB SCH ×3 (05:04→22:29)
[2020-06-20] MEDS ORDERED: *HR* OxyCODONE Immed Rel 15 MG TABLET PO SCH (09:00)
[2020-06-20] MEDS: Gabapentin 300 MG CAPSULE PO SCH ×3 (09:25→22:29)
[2020-06-20] MEDS: Aspirin Enteric Coated 81 MG Tablet PO SCH (09:26)
[2020-06-20] MEDS: Budesonide/Formoterol 80/4.5 1 PUFF INH IH SCH ×2 (10:38→21:54)
[2020-06-20] MEDS ORDERED: *HR* Rivaroxaban 10 MG TABLET PO SCH (17:00)
[2020-06-21] MEDS: Nicotine 21 MG PATCH.TD24 TD SCH (04:43)
[2020-06-21] MEDS: Piperacillin/Tazobactam 3.375 GM in 0.9 % Sodium Chloride Mini Bag 100 ML IVPB SCH ×3 (04:43→20:46)
[2020-06-21 06:28] LABS: Hematocrit 36.9 % (35.3-44.9); Hemoglobin 11.4 g/dL (11.5-15.4); Mean Corpuscular HGB Conc 30.9 g/dL (31.6-35.5); Mean Corpuscular Volume 84.2 fL (83.0-100.0); Mean Platelet Volume 9.3 fL (9.4-12.4); Platelet Count 163 K/mcL (140-400); Red Blood Count 4.38 M/mcL (3.82-4.97); Red Cell Distribution Width 17.9 % (11.5-14.5); White Blood Count 5.7 K/mcL (4.3-11.1)
[2020-06-21 06:47] LABS: BUN/Creatinine Ratio 13 (6-26); Blood Urea Nitrogen 7 mg/dL (8-23); Calcium 8.1 mg/dL (8.6-10.3); Carbon Dioxide 25 mEq/L (23-29); Chloride 106 mEq/L (98-107); Glucose 85 mg/dL (70-105); Osmolality,Calculated 275 (280-300); Potassium 3.8 mEq/L (3.5-5.1); Sodium 134 mEq/L (136-145); eGFR For African Americans > 60 (> 60); eGFR For Non-African Americans > 60 (> 60)
[2020-06-21] MEDS: Gabapentin 300 MG CAPSULE PO SCH ×3 (09:39→19:52)
[2020-06-21] MEDS: Aspirin Enteric Coated 81 MG Tablet PO SCH (09:39)
[2020-06-21] MEDS: *HR* OxyCODONE ER (12 HR) 20 MG TABLET PO SCH ×2 (09:42→20:59)
[2020-06-21] MEDS: Budesonide/Formoterol 80/4.5 1 PUFF INH IH SCH ×2 (10:19→22:57)
[2020-06-21] MEDS ORDERED: Ringers Solution, Lactated 1,000 ML IVC SCH (10:30)
[2020-06-21] MEDS: *HR* OxyCODONE Immed Rel 15 MG TABLET PO SCH ×2 (14:19→18:00)
[2020-06-22] MEDS: Piperacillin/Tazobactam 3.375 GM in 0.9 % Sodium Chloride Mini Bag 100 ML IVPB SCH ×3 (04:42→21:13)
[2020-06-22] MEDS: Nicotine 21 MG PATCH.TD24 TD SCH (04:43)
[2020-06-22 07:08] LABS: Hematocrit 37.4 % (35.3-44.9); Hemoglobin 11.5 g/dL (11.5-15.4); Mean Corpuscular HGB Conc 30.7 g/dL (31.6-35.5); Mean Corpuscular Hemoglobin 25.2 pg (28.0-33.3); Mean Platelet Volume 8.8 fL (9.4-12.4); Platelet Count 174 K/mcL (140-400); Red Blood Count 4.56 M/mcL (3.82-4.97); Red Cell Distribution Width 17.9 % (11.5-14.5); White Blood Count 5.1 K/mcL (4.3-11.1)
[2020-06-22 07:19] LABS: BUN/Creatinine Ratio 12 (6-26); Blood Urea Nitrogen 6 mg/dL (8-23); Calcium 8.1 mg/dL (8.6-10.3); Carbon Dioxide 25 mEq/L (23-29); Chloride 106 mEq/L (98-107); Glucose 95 mg/dL (70-105); Osmolality,Calculated 277 (280-300); Potassium 4.1 mEq/L (3.5-5.1); Sodium 135 mEq/L (136-145); eGFR For African Americans > 60 (> 60); eGFR For Non-African Americans > 60 (> 60)
[2020-06-22] MEDS: *HR* OxyCODONE ER (12 HR) 20 MG TABLET PO SCH ×2 (09:20→21:14)
[2020-06-22] MEDS: Gabapentin 300 MG CAPSULE PO SCH ×3 (09:21→21:14)
[2020-06-22] MEDS: Budesonide/Formoterol 80/4.5 1 PUFF INH IH SCH ×2 (09:51→21:42)
[2020-06-22] MEDS ORDERED: Ringers Solution, Lactated 1,000 ML IVC SCH (11:15)
[2020-06-22] MEDS: *HR* OxyCODONE Immed Rel 15 MG TABLET PO SCH ×2 (17:13→21:23)
[2020-06-23] MEDS: Piperacillin/Tazobactam 3.375 GM in 0.9 % Sodium Chloride Mini Bag 100 ML IVPB SCH ×3 (04:59→19:46)
[2020-06-23] MEDS: Nicotine 21 MG PATCH.TD24 TD SCH (05:00)
[2020-06-23] MEDS: Gabapentin 300 MG CAPSULE PO SCH ×3 (10:16→19:46)
[2020-06-23] MEDS: *HR* OxyCODONE ER (12 HR) 20 MG TABLET PO SCH ×2 (10:17→19:46)
[2020-06-23] MEDS: Budesonide/Formoterol 80/4.5 1 PUFF INH IH SCH ×2 (11:23→22:05)
[2020-06-24] MEDS: *HR* OxyCODONE Immed Rel 15 MG TABLET PO SCH ×2 (00:55→14:14)
[2020-06-24] MEDS: Piperacillin/Tazobactam 3.375 GM in 0.9 % Sodium Chloride Mini Bag 100 ML IVPB SCH (04:31)
[2020-06-24] MEDS: Nicotine 21 MG PATCH.TD24 TD SCH (04:31)
[2020-06-24] MEDS: Gabapentin 300 MG CAPSULE PO SCH ×2 (09:18→14:15)
[2020-06-24] MEDS: *HR* OxyCODONE ER (12 HR) 20 MG TABLET PO SCH (09:19)
[2020-06-24] MEDS: Budesonide/Formoterol 80/4.5 1 PUFF INH IH SCH (10:28)
[2020-06-24 11:29] VITALS: BP 93/54
== END 2020-06-24 15:10 | DRG 689 ==
LOC: 3NENU → SUATTDRO 06-19 00:58
PROVIDERS: ADMIT Family Medicine; ATTEND Internal Medicine

== ENCOUNTER 2020-11-12 01:57 | Inpatient (IN) ==
[2020-11-12] MEDS ORDERED: Water for inj. (sterile) 20 ML VIAL IV ONE (01:58)
[2020-11-12] MEDS ORDERED: *HR* LORazepam 2 MG/ML VIAL IVP ONE ×5 (01:58→16:37)
[2020-11-12] MEDS ORDERED: Acetaminophen 325 MG TABLET PO PRN (03:52)
[2020-11-12] MEDS ORDERED: Ondansetron ODT 4 MG TAB.RAPDIS SL PRN (03:52)
[2020-11-12] MEDS ORDERED: Naloxone 0.4 MG/ML INJ IVP PRN (03:52)
[2020-11-12] MEDS ORDERED: 0.9 % Sodium Chloride 1,000 ML IVC SCH (04:00)
[2020-11-12 04:32] LABS: ABG Base Excess 1 mEq/L (-2 to 3); ABG HCO3 28 mEq/L (21-27); ABG Oxygen Saturation 99 % (95-98); ABG PCO2 51 mmHg (35-45); ABG PH 7.35 pH Units (7.32-7.45); ABG PO2 131 mmHg (85-104); ABG TCO2 30 mEq/L (20-26)
[2020-11-12] MEDS: Ipratropium/Albuterol Neb 3 ML IH SCH ×4 (04:57→22:05)
[2020-11-12 04:59] LABS: Basophils % 0.2 %; Hematocrit 44.5 % (35.3-44.9); Hemoglobin 13.7 g/dL (11.5-15.4); Immature Granulocytes % 0.6 % (0-4); Lymphocytes # 0.4 K/mcL (0.6-4.6); Lymphocytes % 3.4 %; Mean Corpuscular HGB Conc 30.8 g/dL (31.6-35.5); Mean Corpuscular Hemoglobin 26.8 pg (28.0-33.3); Mean Corpuscular Volume 86.9 fL (83.0-100.0); Mean Platelet Volume 9.1 fL (9.4-12.4); Monocytes # 0.1 K/mcL (0.0-1.3); Monocytes % 0.7 %; Platelet Count 221 K/mcL (140-400); Red Blood Count 5.12 M/mcL (3.82-4.97); Segmented Neutrophils % 95.1 %; White Blood Count 12.7 K/mcL (4.3-11.1)
[2020-11-12 04:59] LABS: VBG Ionized Calcium 1.04 mmol/L (1.15-1.35)
[2020-11-12 05:01] LABS: INR 1.4
[2020-11-12] MEDS ORDERED: Gadolinium Contrast Agent (WT Based) IV PRN (05:05)
[2020-11-12 05:16] LABS: Alanine Aminotransferase 5 Units/L (7-52); Albumin 3.1 g/dL (3.5-5.7); Alkaline Phosphatase 83 Units/L (34-104); Aspartate Amino Transferase 10 Units/L (13-39); BUN/Creatinine Ratio 15 (6-26); Bilirubin,Direct 0.1 mg/dL (0.0-0.2); Bilirubin,Indirect 0.4 mg/dL (0.0-1.0); Bilirubin,Total 0.5 mg/dL (0.3-1.0); Blood Urea Nitrogen 12 mg/dL (8-23); Calcium 7.8 mg/dL (8.6-10.3); Carbon Dioxide 26 mEq/L (23-29); Chloride 103 mEq/L (98-107); Glucose 106 mg/dL (70-105); Osmolality,Calculated 284 (280-300); Potassium 3.9 mEq/L (3.5-5.1); Sodium 137 mEq/L (136-145); Total Protein 6.1 g/dL (6.4-8.9); eGFR For African Americans > 60 (> 60); eGFR For Non-African Americans > 60 (> 60)
[2020-11-12] MEDS ORDERED: Cyanocobalamin (B-12) 1,000 MCG/ML VIAL IM ONE (05:59)
[2020-11-12] MEDS: MethylPREDNISolone 40 MG/ML VIAL IVP SCH ×3 (08:32→23:41)
[2020-11-12] MEDS: Thiamine (B-1) 200 MG in 0.9 % Sodium Chloride 50 ML IVPB SCH (08:36)
[2020-11-12] MEDS ORDERED: predniSONE 20 MG TABLET PO SCH (09:00)
[2020-11-12] MEDS ORDERED: Isovue-300 150 ML INFUS..BTL IVP ONE (14:38)
[2020-11-12 18:03] LABS: ABG Base Excess 0 mEq/L (-2 to 3); ABG HCO3 27 mEq/L (21-27); ABG Oxygen Saturation 88 % (95-98); ABG PCO2 48 mmHg (35-45); ABG PH 7.35 pH Units (7.32-7.45); ABG PO2 59 mmHg (85-104); ABG TCO2 28 mEq/L (20-26)
[2020-11-12] MEDS: Ringers Solution, Lactated 1,000 ML IVC SCH (18:30)
[2020-11-12 23:58] LABS: Amphetamine Screen,Urine Negative ng/mL (Cutoff=1000); Barbiturate Screen,Urine Negative ng/mL (Cutoff=200); Benzodiazepines Screen,Urine Negative ng/mL (Cutoff=200); Cannabinoid Screen,Urine Negative ng/mL (Cutoff = 50); Cocaine Screen,Urine Negative ng/mL (Cutoff= 300); Opiate Screen,Urine Negative ng/mL (Cutoff=300); Phencyclidine Screen,Urine Negative ng/mL (Cutoff=25)
[2020-11-13 01:27] LABS: Hematocrit 43.6 % (35.3-44.9); Hemoglobin 13.2 g/dL (11.5-15.4); Immature Granulocytes % 0.5 % (0-4); Lymphocytes # 0.5 K/mcL (0.6-4.6); Lymphocytes % 5.2 %; Mean Corpuscular HGB Conc 30.3 g/dL (31.6-35.5); Mean Corpuscular Hemoglobin 26.6 pg (28.0-33.3); Mean Corpuscular Volume 87.9 fL (83.0-100.0); Mean Platelet Volume 9.5 fL (9.4-12.4); Monocytes # 0.2 K/mcL (0.0-1.3); Monocytes % 2.2 %; Platelet Count 228 K/mcL (140-400); Red Blood Count 4.96 M/mcL (3.82-4.97); Red Cell Distribution Width 17.4 % (11.5-14.5); Segmented Neutrophils % 92.1 %; White Blood Count 8.6 K/mcL (4.3-11.1)
[2020-11-13] MEDS: Ipratropium/Albuterol Neb 3 ML IH SCH ×4 (03:46→21:58)
[2020-11-13 06:56] LABS: Alanine Aminotransferase 5 Units/L (7-52); Alkaline Phosphatase 70 Units/L (34-104); Aspartate Amino Transferase 9 Units/L (13-39); BUN/Creatinine Ratio 26 (6-26); Bilirubin,Direct 0.1 mg/dL (0.0-0.2); Bilirubin,Indirect 0.2 mg/dL (0.0-1.0); Bilirubin,Total 0.3 mg/dL (0.3-1.0); Blood Urea Nitrogen 16 mg/dL (8-23); Calcium 8.3 mg/dL (8.6-10.3); Carbon Dioxide 24 mEq/L (23-29); Chloride 106 mEq/L (98-107); Glucose 106 mg/dL (70-105); Magnesium 1.8 mg/dL (1.6-2.6); Osmolality,Calculated 290 (280-300); Phosphorous 2.3 mg/dL (2.7-4.5); Potassium 4.2 mEq/L (3.5-5.1); Sodium 139 mEq/L (136-145); eGFR For African Americans > 60 (> 60); eGFR For Non-African Americans > 60 (> 60)
[2020-11-13] MEDS: MethylPREDNISolone 40 MG/ML VIAL IVP SCH ×3 (08:26→23:26)
[2020-11-13] MEDS: Thiamine (B-1) 200 MG in 0.9 % Sodium Chloride 50 ML IVPB SCH (08:27)
[2020-11-13] MEDS: Ringers Solution, Lactated 1,000 ML IVC SCH ×2 (08:27→20:42)
[2020-11-13] MEDS: *HR* Heparin 5,000 UNIT/ML VIAL SQ SCH ×2 (15:29→20:42)
[2020-11-13] MEDS: Budesonide/Formoterol 160/4.5 1 PUFF INH IH SCH (21:58)
[2020-11-14] MEDS: Ipratropium/Albuterol Neb 3 ML IH SCH ×4 (03:55→22:21)
[2020-11-14 05:07] LABS: Hematocrit 38.7 % (35.3-44.9); Hemoglobin 11.7 g/dL (11.5-15.4); Lymphocytes # 0.2 K/mcL (0.6-4.6); Lymphocytes % 7.8 %; Mean Corpuscular HGB Conc 30.2 g/dL (31.6-35.5); Mean Corpuscular Hemoglobin 25.7 pg (28.0-33.3); Mean Corpuscular Volume 85.1 fL (83.0-100.0); Mean Platelet Volume 9.1 fL (9.4-12.4); Monocytes # 0.1 K/mcL (0.0-1.3); Monocytes % 2.6 %; Platelet Count 196 K/mcL (140-400); Red Blood Count 4.55 M/mcL (3.82-4.97); Red Cell Distribution Width 17.6 % (11.5-14.5); Segmented Neutrophils % 88.6 %
[2020-11-14 05:10] LABS: Neutrophils # 2.8 K/mcL (1.6-8.9); White Blood Count 3.1 K/mcL (4.3-11.1)
[2020-11-14 05:39] LABS: BUN/Creatinine Ratio 33 (6-26); Blood Urea Nitrogen 19 mg/dL (8-23); Calcium 8.3 mg/dL (8.6-10.3); Carbon Dioxide 24 mEq/L (23-29); Chloride 104 mEq/L (98-107); Glucose 119 mg/dL (70-105); Osmolality,Calculated 287 (280-300); Potassium 4.1 mEq/L (3.5-5.1); Sodium 137 mEq/L (136-145); eGFR For African Americans > 60 (> 60); eGFR For Non-African Americans > 60 (> 60)
[2020-11-14] MEDS: *HR* Heparin 5,000 UNIT/ML VIAL SQ SCH ×3 (05:59→20:30)
[2020-11-14] MEDS: MethylPREDNISolone 40 MG/ML VIAL IVP SCH ×3 (08:37→23:51)
[2020-11-14] MEDS: Thiamine (B-1) 200 MG in 0.9 % Sodium Chloride 50 ML IVPB SCH (08:37)
[2020-11-14] MEDS: Ringers Solution, Lactated 1,000 ML IVC SCH ×2 (10:07→23:51)
[2020-11-14] MEDS: Budesonide/Formoterol 160/4.5 1 PUFF INH IH SCH ×2 (10:40→22:21)
[2020-11-15 01:03] LABS: Hemoglobin 12.9 g/dL (11.5-15.4); Mean Corpuscular Hemoglobin 25.8 pg (28.0-33.3); Mean Platelet Volume 9.5 fL (9.4-12.4); Platelet Count 186 K/mcL (140-400); Red Cell Distribution Width 17.3 % (11.5-14.5); White Blood Count 3.1 K/mcL (4.3-11.1)
[2020-11-15] MEDS: Ipratropium/Albuterol Neb 3 ML IH SCH ×3 (04:17→15:13)
[2020-11-15] MEDS: *HR* Heparin 5,000 UNIT/ML VIAL SQ SCH (06:19)
[2020-11-15] MEDS: MethylPREDNISolone 40 MG/ML VIAL IVP SCH (08:08)
[2020-11-15] MEDS: Budesonide/Formoterol 160/4.5 1 PUFF INH IH SCH (10:03)
[2020-11-15 11:21] VITALS: BP 125/75
== END 2020-11-15 15:27 | DRG 91 ==
LOC: 3BNU → SUATTDRO 01:57 → 2NNU 05:13 → SUATTDRO 11-13 14:05
PROVIDERS: ADMIT Family Medicine; ATTEND Family Medicine